=== PATIENT | male | born 1960 | race Caucasian/White ===

== ENCOUNTER → 2023-06-05 11:59 | Outpatient (REF) | payer OTHER, SELFPAY | LOC: RAD 11:59 | PROVIDERS: ATTENDING PHYSICIAN Physician Assistant Medical | DX: M25.571 Pain in right ankle and joints of right foot (principal); M25.471 Effusion, right ankle | CPT/HCPCS: 73610 ==

== ENCOUNTER → 2023-06-23 18:56 | Outpatient (REF) | payer OTHER, SELFPAY | LOC: MRI 18:56 | PROVIDERS: ATTENDING PHYSICIAN Anesthesiology; FAMILY PHYSICIAN Family Medicine; REFERRING PHYSICIAN Neurological Surgery | DX: M54.16 Radiculopathy, lumbar region (principal); M54.50 Low back pain, unspecified | CPT/HCPCS: 72148 ==

== ENCOUNTER → 2023-07-11 15:33 | Outpatient (REF) | payer OTHER, SELFPAY | LOC: RAD 15:33 | PROVIDERS: ATTENDING PHYSICIAN Neurological Surgery; FAMILY PHYSICIAN Family Medicine | DX: M51.37 Other intervertebral disc degeneration, lumbosacral region (principal) | CPT/HCPCS: 72131 ==

== ENCOUNTER 2023-09-15 21:41 | Inpatient (IN) | payer OTHER, SELFPAY ==
[2023-09-15 16:29] VITALS: BMI 41.7
[2023-09-15 16:34] VITALS: BP 184/99
[2023-09-15 17:04] LABS: % Basophils 0.3 % (0-2); % Eosinophils 2.5 % (0-6); % Immature Granulocytes 0.3 % (0-0.5); % Lymphocytes 21.5 % (20.5-51.1); % Monocytes 9.8 % (1.7-9.3); % Neutrophils 65.6 % (42.2-75.2); Absolute Eosinophils 0.3 10^3/uL (0-0.7); Absolute Lymphocytes 2.3 10^3/uL (1.2-3.4); Absolute Neutrophils 6.9 10^3/uL (1.4-6.5); Hematocrit 32.8 % (39.0-52.0); Hemoglobin 11.4 g/dL (13.0-18.0); Mean Corp Hgb Conc. 34.8 g/dL (33.0-37.0); Mean Corpuscular Hgb 34.4 pg (27.0-31.0); Mean Corpuscular Volume 99.1 fL (80.0-94.0); Mean Platelet Volume 9.9 fL (7.4-10.4); Nucleated Red Blood Cells % 0 % (-); Platelet Count 245 10^3/uL (130-400); Red Blood Cell Count 3.31 10^6/uL (4.70-6.10); Red Cell Dist. Width 13.5 % (11.5-14.5); White Blood Cell Count 10.5 10^3/uL (4.8-10.8)
[2023-09-15 17:14] LABS: ALT (SGPT) 45 U/L (0-50); AST (SGOT) 47 U/L (17-59); Albumin 4.4 g/dl (3.5-5.0); Alkaline Phosphatase 84 U/L (38-126); Blood Urea Nitrogen 28 mg/dl (9-20); Calcium 10.2 mg/dl (8.4-10.2); Carbon Dioxide 27 mmol/L (22-30); Chloride 99 mmol/L (98-107); Glucose 97 mg/dl (70-99); Potassium 3.9 mmol/L (3.5-5.1); Sodium 135 mmol/L (135-145); Total Bilirubin 0.8 mg/dl (0.2-1.3); eGFR > 60.00
--- NOTE | 2023-09-15 18:59 | ED.GENMED ---
History of Present Illness
General
Chief Complaint: Rectal Bleeding
Source: patient and family
Time Seen by Provider: 09/15/23 18:45
History of Present Illness
History of Present Illness:
63yoM with a history of HTN, HLD, COPD, diverticulosis presenting with his for evaluation of rectal bleeding. Patient had a normal BM around 3:30 that was followed by 3 large episodes of BRBPR. Patient states that the blood filled up the toilet
bowl. He also had a dark red BM on arrival to his exam room. He believes he may have an infection because he ate leftover mussels yesterday. He reports abdominal bloating and gurgling but denies any overt pain. He is otherwise asymptomatic and
denies any fevers, chest pain, shortness of breath, vomiting. He is not on any anticoagulants. He has a history of perforated diverticulitis s/p colostomy/ileostomy in 2012 with subsequent reversal. Last colonoscopy was 2 years ago which was
reportedly normal.
Past History
Past History
ED Past Medical History: GERD, HTN and Other (Diverticulosis)
ED Past Surgical History: Orthopedic (knee replacement) and Other (colonoscopy/endoscopy)
Social History
Tobacco: Non-smoker (Cigars)
Alcohol: Occasional
Drug: None
Personal:
Living: with family
Family History
Family History: Other (n/c)
Phy Exam
General Physical Exam
General Presentation: well appearing and no apparent distress
General age: appears stated age
General Skin: warm and dry
General Habitus: normal
Cardiovascular Exam
Cardiovascular Exam: regular rate/rhythm and no murmur
Pulmonary Exam
Pulmonary Exam: lungs clear, no respiratory distress, no crackles and no wheezing
Gastrointestinal Exam
Gastrointestinal Exam: non tender, soft, non distended, surgical scar and other (Maroon stool)
Skin Exam
Skin Exam: normal color and warm/dry
Course
Orders/Labs/Results
Orders:
Orders
09/15/23 Dinner
NPO
Allow oral meds: Yes
Allow clear liquids: No
NPO with Ice Chips: No
09/15/23 16:45
CMP [Comprehensive Metabolic Panel] Urgent
Complete Blood Count/With Diff Urgent
09/15/23 19:15
Stool Culture Urgent
SANTOSH Source: Feces/Stool
Specimen Description:
Date Specimen was Collected: 09/15/23
Time Specimen was Collected: 19:08
09/15/23 20:51
Admit/Transfer Patient As Directed
Co-Sign Provider:
Level of Care: Inpatient admission
Assign to:: Telemetry
Physician / Group: miguel salazar
Diagnosis: rectal bleeding, eoth abuse
Reason for Telemetry: Arrhythmia
Date to Stop Telemetry: 09/18/23
Time to Stop Telemetry: 11:00
Reason for Hospitalization: rectal bleeding, eoth abuse
Expected length of stay greater than two midnights?: Yes
ELOS- Estimated Length of Stay in days: 3
I certify the patient meets the requirements for IP care: Yes
09/15/23 20:54
Code Status As Directed
Resuscitation Status: Full Code
09/15/23 21:00
Flush (0.9% Sodium Chloride) [Flush (Nss)] See Dose Instructions IV PER PROTOCOL
09/15/23 22:55
0.9% Sodium Chloride 1000 ml [Nss] 1,000 ml IV 100 mls/hr
0.9% Sodium Chloride [Nss (Preservative Free)] See Protocol IV PRN PRN
FOLic ACID [Folvite] 1 mg 0.9% Sodium Chloride 50 ml [Nss] 50 ml IV DAILYPRN
Gabapentin [Neurontin] 300 mg PO TID
Lorazepam [Ativan] 1 mg IV Q1HPRN PRN
Lorazepam [Ativan] 1 mg PO Q2HPRN PRN
Lorazepam [Ativan] 2 mg IV Q1HPRN PRN
09/15/23 22:55
Case Management Consult Once
Case Management Consult: Other
Comment: Substance abuse counseling
DIETARY CONSULT Routine
Reason for Consult: Nutrition support, possible refeeding guidelines
Activity As Directed
Activity Level: As Tolerated
MSAS SCORE As Directed
MSAS Score 0-4: Repeat MSAS every 2 hours until 0-4 for three consecutive assessments, then every 4 hours x 48
hours.
MSAS Score 5-7: For MILD withdrawl symptoms. Repeat MSAS and RASS every 2 hours
MSAS Score 8-11: For MODERATE withdrawal symptoms. Repeat MSAS and RASS every 1 hour. Consider ICU or IMU
level of care.
MSAS Score > 11: For SEVERE withdrawal symptoms. Repeat MSAS and RASS every 1 hour. Notify provider, consider
ICU level of care.
MSAS Additional Instructions: If no improvement or no decrease in score from severe to moderate within 12
hours, consult psychiatry
MSAS Notify Provider: Notify provider if patient requires more than 10 mg of Lorazepam in eight hour period.
Pneumatic Compression Sleeves As Directed
Type: Knee high
Vital Signs As Directed
Frequency: Per unit guidelines
Ot Eval And Treat Routine
Pt Eval And Treat Routine
Activity Level: As Tolerated
DX Deep Vein Thrombosis Video Routine
09/15/23 23:22
Alcohol Urgent
B-Hydroxybutyrate Urgent
GGTP Urgent
Magnesium Urgent
PTT Urgent
Phosphorus Urgent
Prothrombin Time Urgent
09/15/23 23:24
Urinalysis Routine
Date Specimen was Collected: 09/15/23
Time Specimen was Collected: 23:12
Urine Drug Abuse Screen Routine
Date Specimen was Collected: 09/15/23
Time Specimen was Collected: 23:12
09/16/23 00:00
Thiamine Injection 200 mg IV Q8
09/16/23 06:00
Complete Blood Count/With Diff IN AM
Comprehensive Metabolic Panel IN AM
09/16/23 08:00
Ezetimibe [Zetia] 10 mg PO DAILY
FOLic ACID [Folvite] 1 mg PO DAILY
Hydrocodone 7.5/APAP 325 [[place] 7.5/325] 2 tablet PO DAILY
Metoprolol Xl [Toprol Xl] 25 mg PO DAILY
Pantoprazole [Protonix IV] 40 mg IV DAILY
Valsartan [Diovan] 160 mg PO DAILY
09/16/23 13:00
Hydrocodone 7.5/APAP 325 [[place] 7.5/325] 1 tablet PO BID@1300,1800
09/17/23 06:00
Complete Blood Count/With Diff IN AM
Comprehensive Metabolic Panel IN AM
09/17/23 18:00
Atorvastatin [Lipitor] 80 mg PO Q48H
09/18/23 06:00
Complete Blood Count/With Diff IN AM
Comprehensive Metabolic Panel IN AM
09/18/23 11:00
DC Protocol for Telemetry ONCE
09/19/23 08:00
Thiamine HCl [Vitamin B1] 100 mg PO BID
Abnormal Lab Results
09/15/23
16:45
RBC 3.31 L 10^6/uL
(4.70-6.10)
Hgb 11.4 L g/dL
(13.0-18.0)
Hct 32.8 L %
(39.0-52.0)
MCV 99.1 H fL
(80.0-94.0)
MCH 34.4 H pg
(27.0-31.0)
Absolute Neuts (auto) 6.9 H 10^3/uL
(1.4-6.5)
Absolute Monos (auto) 1.0 H 10^3/uL
(0.1-0.6)
Monocytes % 9.8 H %
(1.7-9.3)
BUN 28 H mg/dl
(9-20)
09/15/23 16:45
09/15/23 16:45
Vital Signs
Initial and Last Documented VS:
Initial Vital Signs
Temp Pulse Resp BP Pulse Ox
98.8 F 100 20 184/99 95
09/15/23 16:34 09/15/23 16:34 09/15/23 16:34 09/15/23 16:34 09/15/23 16:34
Last Documented Vital Signs
Temp Pulse Resp BP Pulse Ox
98.6 F 83 20 155/95 95
09/15/23 23:05 09/15/23 23:05 09/15/23 23:05 09/15/23 23:05 09/15/23 23:05
MDM/Problems Addressed
Differential Diagnosis Includes:
63yoM presenting for rectal bleeding that began this morning. Multiple episodes of BRBPR prior to arrival and he had a dark red BM on arrival to the exam room. Patient is hypertensive with otherwise normal vital signs. He is fortunately
nontoxic-appearing. Differential diagnosis includes but is not limited to: Diverticular bleed, hemorrhoidal bleed, AVM, infectious gastroenteritis, anemia
Labs obtained in triage. Hemoglobin is 11.4 which is down from 12.9 in 2020. BUN is 28. Will send stool studies.
*Critical Care Note
Total Time (30-74mins, 75-104mins- exclusive of procedures): Not Applicable
Update Note
Update Note:
On reassessment, patient had a another large dark red BM. Given that he is actively bleeding, will admit for further management. Patient in agreement.
ED Attending Note
-
Portions of this chart may have been created with voice recognition software.� Occasional wrong word or��sound alike� substitutions may have occurred due to the inherent limitations of voice recognition software.
Discharge Plan
Departure
Patient Disposition: Admit
Date of Disposition: 09/15/23
Time of Disposition: 20:02
Presentation/result/management discussed w/ accepting MD/DO: Hospitalist
Discharge Problem:
GI bleed
Interventions
Interventions:
*Risk Screen - Suicide Last Done: 09/15/23 16:43
*General Assessment Last Done: 09/15/23 23:08
*Neglect/Abuse Screening Last Done: 09/15/23 16:43
ED- Fall Risk Assessment Last Done: 09/15/23 19:57
*ED COVID-19 Vaccine History Last Done: 09/15/23 16:34
*Nursing Disposition Last Done: 09/15/23 23:08
SX-Ngyusw-Bzxdsvkppu Assessment Last Done: 09/15/23 19:57
ED- Cardiac Assessment Last Done: 09/15/23 19:57
ED- Pulmonary Assessment Last Done: 09/15/23 19:57
Discharge Date and Time
Discharge Date/Time: 09/15/23 23:09
[2023-09-15 19:18] VITALS: BP 125/91
--- NOTE | 2023-09-15 20:17 | HPS.HSE ---
Family Physician
-
Family Physician: Gato Haynes
Chief Complaint
-
Formed stool with bright red blood
History of Present Illness
63-year-old male complaining of 2 episodes of formed stool with red around it. He also reports 1 episode of light diarrhea soup like with dark red in color followed by lots of gas with some bloody maroon stool. He reports eating muscles on
Friday only a few then repeated in yesterday and had 10 of them. He then became sick today with diarrhea although denies abdominal pain, cramping, fever, chills, no antibiotics or recent travel no sick contacts nausea, vomiting, chest pain,
palpitations, shortness breath, cough, urinary symptoms.. He does have history of perforated diverticulitis status post colostomy/ileostomy in 2013 with subsequent reversal. Other past medical history includes alcohol abuse, hypertension, HLD,
COPD, diverticulosis, Chronic back pain on chronic oral opiates
Medical History
Past Medical History
Past Medical History: Reports Other
Additional Past Medical History:
perforated diverticulitis status post colostomy/ileostomy in 2013 with subsequent reversal
Diverticulosis
alcohol abuse
hypertension
HLD
COPD
Morbid obesity
Past Surgical History: Reports Other
Additional Past Surgical History:
perforated diverticulitis status post colostomy/ileostomy in 2013 with subsequent reversal
Tonsillectomy
Bilateral knee replacement
Social History
Tobacco: Non-smoker
Alcohol: Daily (4 to 8 ounces of vodka daily +36 ounces of IPA beer)
Personal:
Living: With Family
Employment: Employed
Family History
Family History: Other (Father from COVID history of DM2/cardiac disease mother living but does not go to doctors)
Allergies / Home Medications
Allergies reflects when Allergies were last updated in [facility].
Home Medications with original date entered in [facility]
Allergy/Medication List:
Allergies
Allergy/AdvReac Type Severity Reaction Status Date / Time
ciprofloxacin [From Cipro] Allergy JOINT PAIN Verified 09/15/23 16:40
ciprofloxacin HCl Allergy JOINT PAIN Verified 09/15/23 16:40
[From Cipro]
oxycodone Allergy ORAL Verified 09/15/23 16:40
Swelling
Home Medications
lansoprazole 30 mg capsule,delayed release (Prevacid) 30 mg PO DAILY Gastrointestinal issue 06/20/20
albuterol sulfate 90 mcg/actuation aerosol inhaler 2 puff inhalation R Q4HPRN PRN SOB ##1 06/23/20
metoprolol succinate 25 mg tablet,extended release 24 hr 25 mg PO DAILY Blood pressure #60 tabs 06/23/20
atorvastatin 80 mg tablet 80 mg PO Q48H 09/15/23
ezetimibe 10 mg tablet 10 mg PO DAILY 09/15/23
gabapentin 300 mg capsule 300 mg PO TID 09/15/23
hydrochlorothiazide 50 mg tablet 50 mg PO DAILY 09/15/23
hydrocodone 10 mg-acetaminophen 325 mg tablet 1 tab PO BID@1300,1800 09/15/23
hydrocodone 10 mg-acetaminophen 325 mg tablet 2 tab PO DAILY 09/15/23
valsartan 160 mg tablet 160 mg PO DAILY 09/15/23
Review of Systems
-
History Source: Patient and Family ( at bedside)
A 12 point ROS was completed and negative except as noted: Yes
Constitutional: Denies Fever or Fatigue
EENT: Denies Tearing or Runny Nose
Respiratory: Denies Cough or Trouble Breathing
Cardiac: Denies Chest Pain or Syncope
Abdomen/GI: Reports Diarrhea (Watery x 1) and Bloody Stools (Formed brown stool with red around stool and bowel); Denies Abdominal Pain, Nausea, Vomiting or Constipated
: Denies Dysuria, Frequency, Flank Pain, Incontinence or Difficulty Voiding
Musculoskeletal: Denies Joint Pain or Edema
Skin: Denies Itching or Rash
Neurological: Denies Dizzy, Headache or Weakness
Endocrine: Reports No Symptoms
Hematologic/Lymphatic: Reports No Symptoms
Psych: Reports Calm
Physical Exam
Vital Signs
Vital Signs
Temp Pulse Resp BP Pulse Ox
98.8 F 81 23 125/91 95
09/15/23 16:34 09/15/23 20:15 09/15/23 20:15 09/15/23 19:18 09/15/23 16:34
Physical Exam
General: Conversant; No Pain, Fever or Chills
HEENT: NormoCephalic, Anicteric, Moist mucous membranes, PERRLA, Hydro Conjunctivae and No Ptosis
Respiratory: Clear; No Wheezes or Rales
Cardiac: Regular Rhythm; No Murmur, Rub or Gallop
Breast: Deferred by me
GI: Non Tender, Non Distended, Normal Bowel Sounds and Other (Protuberant abdomen)
Rectal: Deferred by Provider
Genito-urinary: Deferred by me
Musculoskeletal: No Clubbing, No Cyanosis, Edema, Left Lower Extremity (Trace edema lower ankles) and Edema, Right Lower Extremity (Trace edema lower ankles); No Edema, Left Upper Extremity or Edema, Right Upper Extremity
Skin: Warm and Dry; No Rash or Jaundice
Neuro: AO x 3, No Motor Deficits, Nonfocal/grossly intact, Cranial Nerves Intact and No Sensory Deficits; No DTR's Intact & Symmetrical, Slurred Speech, Facial Droop or Tremors
Psych: Calm
Laboratory Results
-
09/15/23 16:45
09/15/23 16:45
Laboratory Results
Total Bilirubin 0.8 mg/dl (0.2-1.3) 09/15/23 16:45
AST 47 U/L (17-59) 09/15/23 16:45
ALT 45 U/L (0-50) 09/15/23 16:45
Alkaline Phosphatase 84 U/L (38-126) 07/08/24 16:45
Impression/Plan
-
Impression/plan:
Admit to telemetry
#Acute rectal bleeding bright red blood concern for possible foodborne illness
Developed 1 day after eating reheated mussels and marinara sauce
no recent abx
Hgb 11.4
Consult GI
-IV NSS 100 cc/h
-Stool cultures
-Monitor H&H every 8 hours
#Hx perforated diverticulitis with prior colostomy/ileostomy status post reversal 2012
#Alcohol abuse
Patient drinks 4 to 8 ounces of vodka daily +36 ounces of IPA beer daily
-MSAs screen with protocol
-IV thiamine, IV folate
#HTN�benign
BP 125/91
-Hold HCTZ 50 mg daily
-Continue metoprolol succinate 25 mg daily with hold parameters
-Continue valsartan 160 mg p.o. daily
#HLD
Atorvastatin 80 mg every 48 H, ezetimibe 10 mg daily
#GERD
Patient on 30 mg of Prevacid daily will give Iv PPI
#COPD�no acute exacerbation
-Continue albuterol
#Morbid obesity due to excess calorie consumption�BMI 41.6 kg
-Weight loss recommended, alcohol cessation
#Chronic back pain on chronic oral opiates
May continue gabapentin 300 mg 3 times daily, hydrocodone 1 tab p.o. twice daily 1300 1800, 2 tablets p.o. daily
DVT prophylaxis
SCDs
Full code
--- NOTE | 2023-09-15 20:40 | W.PN.UPDATE ---
Update Note
Progress Note Update
This note serves as an addendum to the H&P by [employer] WILFRIDO Asha LOZANO
HPI
63M HX rectal bleeding (2015) had C Scope(03/07/16) POS for single (solitary) ulcer at the ileocecal valve, diverticulosis, EGD(03/05/2016) POs for gastritis, ETOH use disorder, HTN seen at ER for evaluation of rectal Bleed
Report 3 episodes of BRBPR with 1 dark red bowel movement then mixed with loose BM
He had reheated mussels prior to acute rectal bleed
Other HX include perforated diverticulitis status post colostomy/ileostomy in 2012 with subsequent reversal.
PMHX
HX rectal bleeding (2015) had C Scope(03/07/16) POS for single (solitary) ulcer at the ileocecal valve, diverticulosis, EGD(03/05/2016) POs for gastritis,
ETOH use disorder,
Hypertension,
HLD
COPD
Hemodynamically stable
Data
Hgb 11.4 - was 12.9 on 06/22/23
MCV 99
BUN 28
Unremarkable LFTs
Stool Cx sent
ASSESSMENT & PLAN
Acute 3 episodes of painless BRBPR followed by hematochezia suspect LGIB : DDX : diverticular bleeding, AVM
Hgb 11.4: borderline ACBL anemia on HX chronic macrocytic anemia
Hemodynamically stable
Exposure reheated shell fish prior to rectal painless bleeding
HX rectal bleeding (2015) had C Scope(03/07/16) POS for single (solitary) ulcer at the ileocecal valve, diverticulosis, EGD(03/05/2016) POs for gastritis,
- stool Cx , hold ABx for now
- NPO and IVF
- IV PPI daily
- T & S Blood consent
- Trend Hgb
- GI consult
HX perforated diverticulitis with prior colostomy/ileostomy status post reversal 2012
HX ETOH use disorder: 2- 3 beer, Vodka sots and drink more over the week end
HX chronic macrocytosis with mild anemia
- MSAS protocol for hi risk
Essential HTN
-Hold HCTZ 50 mg daily
- cont. Continue metoprolol succinate 25 mg daily with hold parameters
- cont valsartan 160 mg p.o. daily
DVT Px: SCD
Code: Full
IP TLM
[2023-09-15 22:20] VITALS: BP 159/92
[2023-09-15 23:05] VITALS: BP 155/95; BMI 41.4
[2023-09-15 23:36] LABS: Urine Albumin Negative (Neg - Trace); Urine Bilirubin Negative (Negative); Urine Character Clear (Clear); Urine Color Yellow; Urine Glucose Negative (Negative); Urine Ketone Negative (Negative); Urine Leukocyte Negative (Negative); Urine Nitrite Negative (Negative); Urine Occult Blood Negative (Negative); Urine Specific Gravity 1.005 (<1.030); Urine Urobilinogen Negative (Neg - 1+)
[2023-09-15] MEDS: NEURONTIN PO (23:44)
--- NOTE | 2023-09-15 23:45 | PTCARENOTE ---
Pt received from ED via stretcher. Ambulated to bed w/assist x2, without incident. Pt reported dizziness upon standing. Instructed not to get OOB w/out staff, verbalizes understanding. Telemetry = SR. Ordered labs drawn, urine specimen
collected and sent. Admission and assessment completed, oriented to surroundings and plan of care discussed. Pt assisted to BSC x1, passed large amount of burgundy liquid w/clots, discussed using bedpan, pt agreeable. Pt refused HS dose of
gabapentin. NSS infusing via RAC INT at 100 mL/hr without complication. Call rachel w/in reach. Plan of care ongoing.
[2023-09-15 23:46] LABS: INR 1.06; PT 13.6 Sec (11.4-14.6)
[2023-09-15 23:48] LABS: GGTP 274 U/L (15-73); Magnesium 1.3 mg/dl (1.6-2.3); Phosphorus 4.2 mg/dl (2.5-4.5)
[2023-09-15 23:50] LABS: Alcohol None Detected
[2023-09-15 23:52] LABS: Amphetamines Negative (Negative); Barbiturates Negative (Negative); Benzodiazepines Negative (Negative); Buprenorphine Negative (Negative); Cocaine Negative (Negative); Marijuana Negative (Negative); Methadone Negative (Negative); Methamphetamines Negative (Negative); Opiates Positive (Negative); Phencyclidine Negative (Negative); Tricyclic Antidepressants Negative (Negative)
[2023-09-15 23:54] LABS: B-Hydroxybutyrate 0.23 mmol/L (0.02-0.27)
[2023-09-15] MEDS: NSS 1000 IV (23:54)
[2023-09-15] MEDS: THIAMINE INJECTION 200 MG IV (23:59)
[2023-09-16] VITALS (8 sets, daily range): BP systolic 106–152; BP diastolic 41–97; PULSE 90–93; O2SAT 94
[2023-09-16 00:46] LABS: Fentanyl, Urine Negative (Negative)
[2023-09-16] MEDS: MAGNESIUM SULFATE 100 IV (03:14)
[2023-09-16 06:29] LABS: % Basophils 0.5 % (0-2); % Eosinophils 3.4 % (0-6); % Immature Granulocytes 0.4 % (0-0.5); % Lymphocytes 24.7 % (20.5-51.1); % Monocytes 9.7 % (1.7-9.3); % Neutrophils 61.3 % (42.2-75.2); Absolute Eosinophils 0.3 10^3/uL (0-0.7); Absolute Lymphocytes 1.9 10^3/uL (1.2-3.4); Absolute Monocytes 0.7 10^3/uL (0.1-0.6); Absolute Neutrophils 4.7 10^3/uL (1.4-6.5); Hematocrit 28.5 % (39.0-52.0); Hemoglobin 9.9 g/dL (13.0-18.0); Mean Corp Hgb Conc. 34.7 g/dL (33.0-37.0); Mean Corpuscular Hgb 34.5 pg (27.0-31.0); Mean Corpuscular Volume 99.3 fL (80.0-94.0); Mean Platelet Volume 9.8 fL (7.4-10.4); Nucleated Red Blood Cells % 0 % (-); Platelet Count 210 10^3/uL (130-400); Red Blood Cell Count 2.87 10^6/uL (4.70-6.10); Red Cell Dist. Width 13.4 % (11.5-14.5); White Blood Cell Count 7.6 10^3/uL (4.8-10.8)
[2023-09-16 06:54] LABS: ALT (SGPT) 39 U/L (0-50); AST (SGOT) 37 U/L (17-59); Albumin 3.8 g/dl (3.5-5.0); Alkaline Phosphatase 78 U/L (38-126); Blood Urea Nitrogen 22 mg/dl (9-20); Calcium 9.2 mg/dl (8.4-10.2); Carbon Dioxide 27 mmol/L (22-30); Chloride 101 mmol/L (98-107); Estimated Creatinine Clearance > 125 ml/min; Glucose 105 mg/dl (70-99); Magnesium 2.4 mg/dl (1.6-2.3); Potassium 3.6 mmol/L (3.5-5.1); Sodium 136 mmol/L (135-145); Total Bilirubin 1.2 mg/dl (0.2-1.3); Total Protein 6.3 g/dl (6.3-8.2); eGFR > 60.00
[2023-09-16 07:40] LABS: Hepatitis C Antibody Negative (Negative)
[2023-09-16] MEDS: ZETIA 10 MG PO (08:18)
[2023-09-16] MEDS: NEURONTIN 300 MG PO ×3 (08:18→23:53)
[2023-09-16] MEDS: FOLVITE 1 MG PO (08:18)
[2023-09-16] MEDS: DIOVAN 160 MG PO (08:18)
[2023-09-16] MEDS: NORCO 7.5/325 2 TABLET PO (08:19)
[2023-09-16] MEDS: NSS (PRESERVATIVE FREE) 10 ML IV ×2 (08:19→19:41)
[2023-09-16] MEDS: PROTONIX IV 40 MG IV ×2 (08:19→19:40)
[2023-09-16] MEDS: THIAMINE INJECTION 200 MG IV ×3 (08:19→23:53)
[2023-09-16] MEDS: TOPROL XL 25 MG PO (08:20)
[2023-09-16] MEDS: NSS 1000 IV ×2 (08:30→23:53)
--- NOTE | 2023-09-16 09:47 | CON.GI ---
Addendum entered and electronically signed by Maren Hernández DO 09/16/23 14:00:
Patient seen and examined independently of KALYAN. I agree with her note with my additions below
Arturo is a 63-year-old obese male with history of complicated diverticular disease and prolonged hospitalization for perforated diverticulitis status post colostomy in 2012 with eventual reversal and multiple abdominal surgeries and washouts,
COPD, FUENTES on BiPAP, significant nightly alcohol who comes in with acute onsets painless bloody stool and urgency without fever, chills or leukocytosis after eating reheated mussels.
Patient states he was in normal state of health. On Friday he had mussels then reheated them in the microwave on Friday. About 12 hours later he had the urge to move his bowels and had mainly stool with bright red blood. Since then has had an
episode of loose stools which have become more and more dark with each episode and less frequent. Still no significant abdominal pain. No fever no chills. Stool studies have been negative for Giardia cryptosporidium, C. difficile. stool culture
still pending. His last colonoscopy was in [address] Meraz when he was here for rectal bleeding and at that time an endoscopy and a colonoscopy and Was found to have an ileocecal valve ulcer. Patient has diverticulosis throughout the entire
colon.
No imaging to view.
# Bloody stool --patient is hemodynamically stable with roughly 3 g drop in hemoglobin since admission
-- Stools are slowing down
-- Stool is now darker and less red
-- More likely infectious in nature especially with repeating mussels which can release the toxin, stool culture pending - need to rule out e.coli before antibiotics
-- IVF
-- check fecal leukocytes
-- If patient develops any abdominal pain would proceed with imaging
--If bleeding/stools do not slow down we will proceed to flexible sigmoidoscopy/colonoscopy
--Once daily PPI
-- monitor hgb
Addendum entered and electronically signed by Marianne King NP 09/16/23 12:46:
Also possibly infectious given his intake of left over mussels. Await stool studies. Hgb is stable.
Original Note:
Consultation
-
Date/Time Consultation Requested: 09/16/23 @ 02:40
Date/Time Consultation Performed: 09/16/23 @ 10:00
Requesting Provider: KALYAN Dowling
Performing Provider: KALYAN Bryan; Dr. Maren Hernández
Reason for Consultation: rectal bleed after eating mussels
Medical History
Chief Complaint / HPI
Chief Complaint: Diarrhea, rectal bleeding
History of Present Illness:
The pt is a 63 yo male with a PMH significant for diverticular disease with complicated and prolonged hospitalized for perforated diverticulitis status post colostomy/ileostomy in 2012 with reversal, chronic back pain on opiates, alcohol abuse,
hypertension, hyperlipidemia, COPD, obesity, FUENTES with CPAP use, prior GI bleeding suspected to be diverticular, who presented to the emergency room with complaints of diarrhea and rectal bleeding which we are being asked to evaluate for. Upon
review of prior records, the patient was seen here in 2015 with complaints of rectal bleeding at that time after having knee surgery and being on high-dose aspirin post surgery. He underwent EGD and colonoscopy at that time in which his colonoscopy
revealed a ileocecal ulcer. EGD showed gastritis and random biopsies were unrevealing. The patient notes that he had a prolonged and complicated hospitalization in 2012 where he had a bowel resection for diverticulitis with perforation. He
underwent initial surgery and then had recurrent complications including sepsis requiring ileostomy and colostomy placement, with subsequent surgeries for washout, requiring a wound VAC for healing. He notes he was in the hospital for about 20 to
30 days at that time, but since then has not had any major complications. He reports yesterday evening around 3:20 PM he developed the urgency to move his bowels, and upon going he noticed bright red blood in the toilet bowl. He had 3 subsequent
episodes within 15 minutes of each other again with bright red blood per rectum. He notes that he ate leftover muscles yesterday afternoon with symptoms subsequently after that. He denies any abdominal pain, nausea, vomiting, fevers, or chills.
He notes he has had several episodes of rectal bleeding in the past, but without the significant mount of bleeding as this admission. He notes that he had a very busy day and was doing lots of lifting yesterday prior to this onset as well. He
denies any constipation or significant diarrhea prior to this onset He otherwise denies any chest pain, shortness of breath, dizziness, lightheadedness, or syncope. Does have occasional reflux and does take Prevacid regularly for this. He denies
any unintentional weight loss or loss of appetite. He continues with the urgency to move his bowels and is passing blood although he notes it is much darker in appearance and happening less frequently. He denies any use of blood thinners, aspirin,
or NSAIDs. He will take Tylenol on occasion for his chronic pain. Also takes hydrocodone as well up to 3-4 times a day for his chronic pain. He denies any family history of colon cancer or other GI cancers or disorders. His last EGD and
colonoscopy as mentioned above. This with your eyes status negative Routine labs admission showed a WBC 10.5, hemoglobin 11.4, MCV 99.1, platelets 245,000, INR 1.06, sodium 135, potassium 3.9, BUN 28, creatinine 0.7, bilirubin 0.8, AST 47, ALT 45,
alk phos 84, albumin 4.4, total protein 7.0. Stool studies were sent and are negative for C. difficile, Cryptosporidium, or Giardia. Stool culture is pending. He was placed on once daily IV PPI, IV fluids, made n.p.o., and admitted for further
evaluation by GI. Antibiotics were held on admission.
Past Medical History
Past Medical History: CHF (Right-sided heart failure), COPD, GERD, HTN, Hypercholesterolemia, NIDDM (Prediabetes) and Other (Chronic back pain on opiates, obesity, history of diverticulosis with perforated diverticulitis status post bowel resection
with colostomy and reversal, obstructive sleep apnea with CPAP use)
Past Surgical History: Bowel Resection (Bowel resection secondary to diverticular disease with ileostomy and colostomy with reversal, lysis of adhesions), Orthopedic (Bilateral knee replacement) and Tonsilectomy
Social History
Tobacco: Non-Smoker
Alcohol: Daily (Up to 3 beers and 48 ounces of bourbon daily)
Drug: None
Employment: Employed
Family History
Family History: Reviewed & Not Pertinent
Allergies / Home Medications
Allergy/AdvReac Type Severity Reaction Status Date / Time
ciprofloxacin [From Cipro] Allergy JOINT PAIN Verified 09/15/23 16:40
ciprofloxacin HCl Allergy JOINT PAIN Verified 09/15/23 16:40
[From Cipro]
oxycodone Allergy ORAL Verified 09/15/23 16:40
Swelling
�Medication �Instructions �Recorded
lansoprazole 30 mg capsule,delayed 30 mg PO DAILY Gastrointestinal 06/20/20
release (Prevacid) issue
albuterol sulfate 90 mcg/actuation 2 puff inhalation R Q4HPRN PRN SOB 06/23/20
aerosol inhaler ##1
metoprolol succinate 25 mg 25 mg PO DAILY Blood pressure #60 06/23/20
tablet,extended release 24 hr tabs
atorvastatin 80 mg tablet 80 mg PO Q48H 09/15/23
ezetimibe 10 mg tablet 10 mg PO DAILY 09/15/23
gabapentin 300 mg capsule 300 mg PO TID 09/15/23
hydrochlorothiazide 50 mg tablet 50 mg PO DAILY 09/15/23
hydrocodone 10 mg-acetaminophen 1 tab PO BID@1300,1800 09/15/23
325 mg tablet
hydrocodone 10 mg-acetaminophen 2 tab PO DAILY 09/15/23
325 mg tablet
valsartan 160 mg tablet 160 mg PO DAILY 09/15/23
Review of Systems
-
History Source: Patient
Constitutional: Reports Weight Loss (Intentional)
EENT: Reports No Symptoms
Respiratory: Reports No Symptoms
Cardiac: Reports No Symptoms
Abdomen/GI: Reports Bloody Stools
: Reports No Symptoms
Musculoskeletal: Reports Other (Chronic back pain)
Skin: Reports No Symptoms
Neurological: Reports No Symptoms
Vital Signs
Temp Pulse Resp BP Pulse Ox
97.7 F 83 20 152/84 94
09/16/23 07:32 09/16/23 07:32 09/16/23 07:32 09/16/23 07:32 09/16/23 07:32
Physical Exam
Exam
General: Well Developed, Well Nourished, No Apparent Distress, Comfortable and Other (Obese male appears stated age, )
HEENT: Normocephalic, Anicteric and Atraumatic
Respiratory: Clear
Cardiac: S1/S2 and Regular Rhythm
Breast: N/A
GI: Soft, Non Tender, Non Distended, Normal Bowel Sounds and Other (Obese abdomen, numerous prior abdominal surgical scars)
Musculoskeletal: Edema (Trace lower extremity edema)
Skin: Warm and Dry
Neuro: Awake, Alert and Oriented
Psych: Calm
Results
WBC 7.6 10^3/uL (4.8-10.8) 09/16/23 06:06
Hgb 9.9 g/dL (13.0-18.0) L 09/16/23 06:06
Hct 28.5 % (39.0-52.0) L 09/16/23 06:06
MCV 99.3 fL (80.0-94.0) H 09/16/23 06:06
Plt Count 210 10^3/uL (130-400) 09/16/23 06:06
Absolute Neuts (auto) 4.7 10^3/uL (1.4-6.5) 09/16/23 06:06
PT 13.6 Sec (11.4-14.6) 09/15/23 23:22
INR 1.06 09/15/23 23:22
APTT 26.0 Sec (23.4-35.0) 09/15/23 23:22
Sodium 136 mmol/L (135-145) 09/16/23 06:06
Potassium 3.6 mmol/L (3.5-5.1) 09/16/23 06:06
Chloride 101 mmol/L (98-107) 09/16/23 06:06
Carbon Dioxide 27 mmol/L (22-30) 09/16/23 06:06
BUN 22 mg/dl (9-20) H 09/16/23 06:06
Creatinine 0.6 mg/dL (0.7-1.3) L 09/16/23 06:06
Calcium 9.2 mg/dl (8.4-10.2) 09/16/23 06:06
Total Bilirubin 1.2 mg/dl (0.2-1.3) 09/16/23 06:06
AST 37 U/L (17-59) 09/16/23 06:06
ALT 39 U/L (0-50) 09/16/23 06:06
Alkaline Phosphatase 78 U/L (38-126) 09/16/23 06:06
Hepatitis C Antibody Negative (Negative) 09/16/23 06:06
Diagnostic Image Results: None
Prior GI Procedures:
EGD: 03/05/2016 Dr. Alcala: Z-line irregular, 36 cm from the incisors. Biopsied. Acute gastritis. Biopsied. Normal 3rd part of the duodenum. Path negative for H pylori.
Colonoscopy: 03/07/16, Dr. Meraz: The examined portion of the ileum was normal. A single (solitary) ulcer at the ileocecal valve. Biopsied. Diverticulosis in the entire examined colon. Patent end-to-end colo-colonic anastomosis, characterized
by healthy appearing mucosa. Path negative for dysplasia, showing mixed acute/chronic inflammation.
Assessment / Plan
-
The pt is a 63 yo male with a PMH significant for diverticular disease with complicated and prolonged hospitalized for perforated diverticulitis status post colostomy/ileostomy in 2012 with reversal, chronic back pain on opiates, alcohol abuse,
hypertension, hyperlipidemia, COPD, obesity, FUENTES with CPAP use, prior GI bleeding suspected to be diverticular, who presented to the emergency room with complaints of diarrhea and rectal bleeding which we are being asked to evaluate for. He has an
outlined history for complicated diverticular disease status post bowel resection for perforated diverticulitis in 2012. He was seen in 2016 as above for GI bleeding found to have an ileocecal ulcer on colonoscopy with unrevealing pathology. He
also had an upper endoscopy which showed gastritis otherwise was normal. He notes eating left over muscles over the weekend and developed subsequent bright red blood per rectum. He denies any abdominal pain associated with the bleeding, but has
been having ongoing episodes with urgency. He denies any prior issues with his bowel such as constipation or diarrhea. He does not use any blood thinners or NSAIDs. He had prior GI bleeding in between his admission here in 2016 and now but the
bleeding essentially has self resolved. He does not follow with a GI doctor regularly. He does also drink alcohol in excess with beer and liquor. He has no history of liver disease. His platelets, albumin, and LFTs are all normal, suggesting
less likely advanced liver disease. He does have a history of intermittent anemia in the past. His hemoglobin was 11.4 on admission which dropped to 9.9 this morning with repeat hemoglobin pending. He continues with some intermittent bleeding
although this is darker now on color and occurring less frequently.
Problem list:
-Painless rectal bleeding
-History of complicated diverticular disease with perforation status post resection with colostomy/ileostomy in 2012 with reversal and prolonged hospitalization for sepsis
-Macrocytic anemia
-Elevated BUN
-Hypomagnesemia, resolved
-Elevated GGT
-Chronic opiate use for chronic pain syndrome
-chronic excessive alcohol use
Other pertinent medical history:
-Chronic right-sided heart failure
-COPD
-FUENTES with CPAP use
-Hypertension
-Hyperlipidemia
Recommendations:
-Etiology of rectal bleeding possibly secondary to diverticular disease given painless rectal bleeding versus AVMs versus less likely brisk upper GI bleed versus other.
---He has had a mild drift down of his hemoglobin, with ongoing intermittent episodes of bleeding although less frequent and darker in color. He has no abdominal pain on exam and is hemodynamically stable.
-Will increase his PPI to twice daily given the darkening of his stool and an elevated BUN, although upper GI source of bleeding is less likely given his hemodynamic stability.
-If he has any recurrent significant bleeding would obtain CTA for further evaluation
-He will possibly need an EGD and colonoscopy, consider inpatient given his drop of hemoglobin. Will review with Dr. Hernández.
-Continue NPO for now
-Continue to trend H/H
-Transfuse to keep hgb >7
-Avoid blood thinner agents
-Avoid NSAID's
-Large bore IV's
-I did advise reduction of alcohol intake and the risk of progression into liver disease
-Add iron studies, ferritin, B12, and folate
-Further plan pending above
Data Reviewed
-
Old Records: Reviewed
-
-
Thank you for consultation and allowing me to participate in the patient's care. Please call the certified medical transcriptionist GI physician during the after hours with any questions or concerns.
--- NOTE | 2023-09-16 10:02 | W.PN.HOSP.TC ---
Today's Communication/Plan
-
see A/P
Assessment / Plan
Assessment / Plan
HPI: 63-year-old male PMH alcohol abuse, hypertension, HLD, COPD, diverticulosis, perforated diverticulitis status post colostomy/ileostomy in 2012 with subsequent reversal, Chronic back pain on chronic oral opiates; p/w BRBPR.
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
He denies to abdominal pain, cramping, fever, chills, no antibiotics or recent travel, no sick contacts.
A/P:
# BRBPR , possibly infectious
# Acute blood loss anemia due to above
C diff negative, stool parasite negative
Follow stool culture
Cont PPI BID
Consult GI
Hgb today at 9.9 from 11.4 on admission, cont to trend Hgb
transfuse for Hgb < 7
# h/o perforated diverticulitis with prior colostomy/ileostomy status post reversal 2012
# Alcohol abuse
Patient drinks 4 to 8 ounces of vodka daily +36 ounces of IPA beer daily
MSAS protocol
IV thiamine, IV folate
# HTN�benign
BP 125/91
Hold HCTZ 50 mg daily
Continue metoprolol succinate 25 mg daily with hold parameters
Continue valsartan 160 mg p.o. daily
# HLD
Atorvastatin, ezetimibe
# GERD
PPI
# COPD�no acute exacerbation
Continue albuterol
# Morbid obesity due to excess calorie consumption
BMI 41
Weight loss recommended
# Chronic back pain on chronic oral opiates
May continue gabapentin 300 mg 3 times daily, hydrocodone 1 tab p.o. twice daily 1300 1800, 2 tablets p.o. daily
DVT prophylaxis SCDs
Full code
[facility] GI team
[facility] RN
Anticipated Discharge: 24 - 48 hours
Subjective/Interval History
-
Date of Service: September 16, 2023
Objective Data
-
Labs:
Laboratory Results
09/15/23 09/16/23 09/16/23
23:22 06:06 12:00
WBC 7.6
Hgb 9.9 L Pending
Hct 28.5 L Pending
Plt Count 210
PT 13.6
INR 1.06
APTT 26.0
Sodium 136
Potassium 3.6
Chloride 101
Carbon Dioxide 27
BUN 22 H
Creatinine 0.6 L
Glucose 105 H
Calcium 9.2
Total Bilirubin 1.2
AST 37
ALT 39
Alkaline Phosphatase 78
09/16/23
18:00
WBC
Hgb Pending
Hct Pending
Plt Count
PT
INR
APTT
Sodium
Potassium
Chloride
Carbon Dioxide
BUN
Creatinine
Glucose
Calcium
Total Bilirubin
AST
ALT
Alkaline Phosphatase
Vital Signs:
Vital Signs
Temp Pulse Resp BP Pulse Ox
36.5 C 83 20 152/84 94
09/16/23 07:32 09/16/23 07:32 09/16/23 07:32 09/16/23 07:32 09/16/23 07:32
I&O
09/15/23 09/16/23 09/17/23
06:59 06:59 06:59
Intake Total 750 / 750
Output Total 800 / 800
Balance -50 / -50
Review of Systems
-
All other systems: Reviewed and negative
Physical Exam
-
General: Well Developed, Well Nourished, No Apparent Distress, Comfortable, Conversant and Morbidly Obese; Negative Respiratory Distress
HEENT: Normocephalic, Atraumatic, Nose Appears Normal and Ears Appear Normal; Negative Oxygen
Respiratory: Clear to Auscultation and Non Labored Respirations; Negative Accessory Resp Muscle Use
Cardiac: Regular Rhythm and S1/S2
GI: Soft, Nontender, Nondistended and Normal Bowel Sounds
Skin: Warm and Dry
Neuro: Awake, Alert, Oriented and AO x 3
Psych: Calm and Intact Judgement/Insight
Data Reviewed
-
Labs: Labs Reviewed by me
[2023-09-16 12:04] LABS: Iron 100 ug/dl (49-181)
[2023-09-16 12:04] LABS: Hematocrit 27.6 % (39.0-52.0); Hemoglobin 9.2 g/dL (13.0-18.0)
[2023-09-16] MEDS: ProAIR HFA INHALER 2 PUFF INH (12:04)
[2023-09-16 12:14] LABS: Percent Saturation 30 % (20-50); Total Iron Binding Capacity 329 ug/dl (261-462)
[2023-09-16] MEDS: NORCO 7.5/325 1 TABLET PO ×2 (12:28→17:19)
[2023-09-16 13:09] LABS: Folate > 20.0 ng/ml (2.76-20); Vitamin B12 363 pg/ml (239-931)
[2023-09-16 18:11] LABS: Hematocrit 26.4 % (39.0-52.0); Hemoglobin 9.2 g/dL (13.0-18.0)
[2023-09-17 03:00] VITALS: BP 126/73
[2023-09-17 06:34] LABS: Hematocrit 24.6 % (39.0-52.0); Hemoglobin 8.4 g/dL (13.0-18.0); Mean Corp Hgb Conc. 34.1 g/dL (33.0-37.0); Mean Corpuscular Hgb 35.1 pg (27.0-31.0); Mean Corpuscular Volume 102.9 fL (80.0-94.0); Mean Platelet Volume 10.2 fL (7.4-10.4); Platelet Count 189 10^3/uL (130-400); Red Blood Cell Count 2.39 10^6/uL (4.70-6.10); Red Cell Dist. Width 13.3 % (11.5-14.5); White Blood Cell Count 6.2 10^3/uL (4.8-10.8)
[2023-09-17 07:00] VITALS: BP 98/64
[2023-09-17 07:01] LABS: Blood Urea Nitrogen 18 mg/dl (9-20); Calcium 8.6 mg/dl (8.4-10.2); Carbon Dioxide 30 mmol/L (22-30); Chloride 103 mmol/L (98-107); Estimated Creatinine Clearance 116 ml/min; Glucose 103 mg/dl (70-99); Sodium 136 mmol/L (135-145); eGFR > 60.00
[2023-09-17] MEDS: PROTONIX IV 40 MG IV ×2 (07:26→21:08)
[2023-09-17] MEDS: NSS (PRESERVATIVE FREE) 10 ML IV ×2 (07:27→21:08)
[2023-09-17] MEDS: ZETIA 10 MG PO (07:27)
[2023-09-17] MEDS: NEURONTIN 300 MG PO ×3 (07:27→22:05)
[2023-09-17] MEDS: FOLVITE 1 MG PO (07:28)
[2023-09-17] MEDS: NORCO 7.5/325 2 TABLET PO (07:28)
[2023-09-17] MEDS: THIAMINE INJECTION 200 MG IV ×2 (07:28→16:25)
[2023-09-17] MEDS: DIOVAN 160 MG PO (07:35)
[2023-09-17] MEDS: TOPROL XL 25 MG PO (07:35)
--- NOTE | 2023-09-17 10:17 | PN.CDI ---
CDI
- -
CDI:
Physician Documentation Request
Admit Date: 09/15/23 21:41
Dear Doctor Fahad,
Please review the following and provide your response in the progress notes.
Clinical Indicators:
- 09/15 PN 'Chronic back pain on chronic oral opiates'
- 09/15 GI 'Chronic opiate use for chronic pain syndrome'
- Ford 7.5/325 3 tablets PO daily
If possible, please provide further specificity as outlined below:
Opiate use with dependence
Opiate use without dependence
Other
Use of terms such as suspected, likely, concern for, or probable (associated with a specific diagnosis that is being evaluated, monitored, or treated as if it exists) are acceptable and can be coded in the inpatient setting, when documented at the
time of discharge.
Thank you,
Anuj Jamison RN
CDI Specialist
Please use your independent medical judgment in providing your response.
--- NOTE | 2023-09-17 10:20 | W.PN.HOSP.TC ---
Addendum entered and electronically signed by Nidhi Vásquez MD 09/17/23 12:40:
# Opiate use with dependence
Original Note:
Today's Communication/Plan
-
BRBPR has resolved
advance diet to low cholesterol
cont to trend Hgb
anticipate DC if Hgb remain stable tmr
Assessment / Plan
Assessment / Plan
HPI: 63-year-old male PMH alcohol abuse, hypertension, HLD, COPD, diverticulosis, perforated diverticulitis status post colostomy/ileostomy in 2012 with subsequent reversal, Chronic back pain on chronic oral opiates; p/w BRBPR.
He reports eating mussels on 2 days [employer].
He denies to abdominal pain, cramping, fever, chills, no antibiotics or recent travel, no sick contacts.
A/P:
# BRBPR , possibly infectious
# Acute blood loss anemia due to above
C diff negative, stool parasite negative
Stool culture so far negative, Shiga toxin pending
Cont PPI BID
Appreciate GI input
Hgb today at 8.4 from 11.4 on admission, cont to trend Hgb
transfuse for Hgb < 7
# h/o perforated diverticulitis with prior colostomy/ileostomy status post reversal 2012
# Alcohol abuse
Patient drinks 4 to 8 ounces of vodka daily +36 ounces of IPA beer daily
MSAS protocol
IV thiamine, IV folate
# HTN�benign
Continue metoprolol succinate 25 mg daily with hold parameters
Continue valsartan 160 mg p.o. daily
Hold HCTZ 50 mg daily
BP stable
# HLD
Atorvastatin, ezetimibe
# GERD
PPI
# COPD�no acute exacerbation
Continue albuterol
# Morbid obesity due to excess calorie consumption
BMI 41
Weight loss recommended
# Chronic back pain on chronic oral opiates
May continue gabapentin 300 mg 3 times daily, hydrocodone 1 tab p.o. twice daily 1300 1800, 2 tablets p.o. daily
DVT prophylaxis SCDs
Full code
[facility] GI team
[facility] RN
Anticipated Discharge: 24 - 48 hours
Subjective/Interval History
-
Date of Service: September 17, 2023
Objective Data
-
Labs:
Laboratory Results
09/17/23
05:56
WBC 6.2
Hgb 8.4 L
Hct 24.6 L
Plt Count 189
Sodium 136
Potassium 4.0
Chloride 103
Carbon Dioxide 30
BUN 18
Creatinine 0.8
Glucose 103 H
Calcium 8.6
Vital Signs:
Vital Signs
Temp Pulse Resp BP Pulse Ox
36.8 C 82 18 120/78 96
09/17/23 07:00 09/17/23 07:35 09/17/23 07:00 09/17/23 07:35 09/17/23 07:00
I&O
09/16/23 09/17/23 09/18/23
06:59 06:59 06:59
Intake Total 750 / 750 1680 / 1680
Output Total 800 / 800 1475 / 1475
Balance -50 / -50 205 / 205
Review of Systems
-
All other systems: Reviewed and negative
Abdomen/GI: Denies Diarrhea or Bloody Stools
Physical Exam
-
General: Well Developed, Well Nourished, No Apparent Distress, Comfortable, Conversant and Morbidly Obese; Negative Respiratory Distress
HEENT: Normocephalic, Atraumatic, Nose Appears Normal and Ears Appear Normal; Negative Oxygen
Respiratory: Clear to Auscultation and Non Labored Respirations; Negative Accessory Resp Muscle Use
Cardiac: Regular Rhythm and S1/S2
GI: Soft, Nontender, Nondistended and Normal Bowel Sounds
Skin: Warm and Dry
Neuro: Awake, Alert, Oriented and AO x 3
Psych: Calm and Intact Judgement/Insight
Data Reviewed
-
Labs: Labs Reviewed by me
[2023-09-17 11:00] VITALS: BP 116/59
[2023-09-17] MEDS: NORCO 7.5/325 1 TABLET PO ×2 (12:00→17:19)
[2023-09-17 15:00] VITALS: BP 117/83
--- NOTE | 2023-09-17 15:30 | W.PN.GI.CBS2 ---
Addendum entered and electronically signed by Maren Hernández DO 09/17/23 18:08:
Patient seen and examined independently of PHYSICIAN AIDE. I agree with her note with my additions below
# Multiple bloody stools -hemoglobin is stabilized and no further GI bleeding. Stools are now forming
-- Likely an infectious diarrhea secondary to shellfish that was reheated
-- E. coli is still pending.
-- Patient is okay for discharge and will follow-up in our office for future colonoscopy with Dr. Meraz
--Repeat CBC in 1 week with PCP
-- Needs to decrease alcohol intake significantly and would consider alcohol + MASLD outpatient
GI will sign off. Please call with any questions
-- Office called him to set up an appointment and he will call them back tomorrow
Original Note:
Today's Communication / Plan
-
Diet as tolerated. Monitor H&H. Monitor for recurrent bleeding. If stable hemoglobin, likely okay for discharge in the morning. Outpatient follow-up for colonoscopy
Assessment / Plan
-
The pt is a 63 yo male with a PMH significant for diverticular disease with complicated and prolonged hospitalized for perforated diverticulitis status post colostomy/ileostomy in 2012 with reversal, chronic back pain on opiates, alcohol abuse,
hypertension, hyperlipidemia, COPD, obesity, FUENTES with CPAP use, prior GI bleeding suspected to be diverticular, who presented to the emergency room with complaints of diarrhea and rectal bleeding which we are being asked to evaluate for. He has an
outlined history for complicated diverticular disease status post bowel resection for perforated diverticulitis in 2012. He was seen in 2016 as above for GI bleeding found to have an ileocecal ulcer on colonoscopy with unrevealing pathology. He
also had an upper endoscopy which showed gastritis otherwise was normal. He notes eating left over muscles over the weekend and developed subsequent bright red blood per rectum. He denies any abdominal pain associated with the bleeding, but has
been having ongoing episodes with urgency. He denies any prior issues with his bowel such as constipation or diarrhea. He does not use any blood thinners or NSAIDs. He had prior GI bleeding in between his admission here in 2016 and now but the
bleeding essentially has self resolved. He does not follow with a GI doctor regularly. He does also drink alcohol in excess with beer and liquor. He has no history of liver disease. His platelets, albumin, and LFTs are all normal, suggesting
less likely advanced liver disease. He does have a history of intermittent anemia in the past. His hemoglobin was 11.4 on admission which dropped to 9.9 this morning with repeat hemoglobin pending. He continues with some intermittent bleeding
although this is darker now on color and occurring less frequently.
Problem list:
-Painless rectal bleeding, resolved
-History of complicated diverticular disease with perforation status post resection with colostomy/ileostomy in 2012 with reversal and prolonged hospitalization for sepsis
-Macrocytic anemia
-Elevated BUN
-Hypomagnesemia, resolved
-Elevated GGT
-Chronic opiate use for chronic pain syndrome
-chronic excessive alcohol use
Other pertinent medical history:
-Chronic right-sided heart failure
-COPD
-FUENTES with CPAP use
-Hypertension
-Hyperlipidemia
Recommendations:
-Etiology of rectal bleeding possibly secondary to diverticular disease given painless rectal bleeding versus AVMs versus infectious given he ate left over mussels versus other.
---His bleeding has subsided. He has had a drop of his hemoglobin down to 8.4 but again without bleeding. He is tolerating a regular diet.
-Reduce to once daily PPI
-Awaiting E. coli Shiga test otherwise stool culture, and for other infectious stool studies are unrevealing. There are a few white blood cells seen.
-Continue diet as tolerated
-He will need a colonoscopy, but this can be done outpatient if he remains stable and has no further bleeding. To consider EGD as well given his anemia.
-Continue to trend H/H. If stable in the AM with no recurrent bleeding, likely OK for discharge from GI standpoint. He has no iron deficiency
-I did advise reduction of alcohol intake and the risk of progression into liver disease
-He should repeat his CBC in 1 week outpatient, which can be done with his PCP
-Will arrange for an outpatient follow-up in 3-4 weeks in the office
Subjective
Subjective
Date of Service: September 17, 2023
The patient has had no further episodes of bleeding. He has no GI complaints today. He is tolerating a regular diet. Noted with a drop of his hemoglobin to 8.4, although again with no signs of bleeding. He is otherwise hemodynamically stable.
Objective
Data Reviewed
Laboratory Data:
Laboratory Results
09/17/23 05:56
Laboratory Results
PT 13.6 Sec (11.4-14.6) 09/15/23 23:22
INR 1.06 09/15/23 23:22
APTT 26.0 Sec (23.4-35.0) 09/15/23 23:22
Phosphorus 4.2 mg/dl (2.5-4.5) 09/15/23 23:22
Magnesium 2.0 mg/dl (1.6-2.3) 09/17/23 05:56
Total Bilirubin 1.2 mg/dl (0.2-1.3) 09/16/23 06:06
AST 37 U/L (17-59) 09/16/23 06:06
ALT 39 U/L (0-50) 09/16/23 06:06
Alkaline Phosphatase 78 U/L (38-126) 09/16/23 06:06
Vital Signs and I&O:
Vital Signs
Temp Pulse Resp BP Pulse Ox
98.1 F 76 18 116/59 96
09/17/23 11:00 09/17/23 11:00 09/17/23 11:00 09/17/23 11:00 09/17/23 11:00
I&O
09/16/23 09/17/23 09/18/23
06:59 06:59 06:59
Intake Total 750 / 750 1680 / 1680
Output Total 800 / 800 1475 / 1475
Balance -50 / -50
Physical Exam
Physical Exam
HEENT: Anicteric
Cardiology: S1 and S2 (RRR)
Pulmonary: Clear
GI: Soft, Non Tender, Normal Bowel Sounds and Other (obese abdomen)
[2023-09-17 16:01] LABS: Hematocrit 26.9 % (39.0-52.0); Hemoglobin 9.1 g/dL (13.0-18.0)
--- NOTE | 2023-09-17 16:17 | CM ---
Reviewed chart. Received consult for substance abuse counseling. Met with patient to obtain information for assessment. Patient stated that he lives with his in a one story home with one step to enter. He described himself as independent with
his ADLs, personal care, dressing and bathing. 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 He does admit to getting out of breath.
Patient drives and can get to appointments and can do all the shopping.
Patient has not had VN.
He has not been to a SNF.
Patient has a prescription plan and uses, [facility] in [place] for all of her medications.
His PCP is, Dr. Gato Haynes.
Patient denied needing any resources on etoh counseling. He stated that he understands that his health comes first and stated that he plans to stop drinking with the support of his spouse.
Plan: Case management will continue to follow and assist with discharge planning. Home when stable.
[2023-09-17] MEDS: NSS 1000 IV (16:24)
[2023-09-17] MEDS: LIPITOR 80 MG PO (17:19)
[2023-09-17 19:01] VITALS: BP 122/62
[2023-09-17 22:41] VITALS: BP 102/44
[2023-09-18] MEDS: THIAMINE INJECTION 200 MG IV ×2 (00:06→08:25)
[2023-09-18 03:47] VITALS: BP 132/80
[2023-09-18 06:46] LABS: Hematocrit 24.5 % (39.0-52.0); Hemoglobin 8.5 g/dL (13.0-18.0); Mean Corp Hgb Conc. 34.7 g/dL (33.0-37.0); Mean Corpuscular Hgb 35.9 pg (27.0-31.0); Mean Corpuscular Volume 103.4 fL (80.0-94.0); Mean Platelet Volume 10.4 fL (7.4-10.4); Platelet Count 201 10^3/uL (130-400); Red Blood Cell Count 2.37 10^6/uL (4.70-6.10); Red Cell Dist. Width 13.4 % (11.5-14.5)
[2023-09-18 07:38] LABS: Blood Urea Nitrogen 17 mg/dl (9-20); Carbon Dioxide 23 mmol/L (22-30); Chloride 106 mmol/L (98-107); Estimated Creatinine Clearance > 125 ml/min; Glucose 113 mg/dl (70-99); Magnesium 1.9 mg/dl (1.6-2.3); Potassium 4.5 mmol/L (3.5-5.1); Sodium 138 mmol/L (135-145); eGFR > 60.00
[2023-09-18 07:46] VITALS: BP 148/79
[2023-09-18] MEDS: DIOVAN 160 MG PO (08:20)
[2023-09-18] MEDS: NORCO 7.5/325 2 TABLET PO (08:21)
[2023-09-18] MEDS: ZETIA 10 MG PO (08:21)
[2023-09-18] MEDS: NEURONTIN 300 MG PO (08:22)
[2023-09-18] MEDS: TOPROL XL 25 MG PO (08:22)
[2023-09-18] MEDS: FOLVITE 1 MG PO (08:23)
[2023-09-18] MEDS: PROTONIX IV 40 MG IV (08:24)
[2023-09-18] MEDS: NSS (PRESERVATIVE FREE) 10 ML IV (08:24)
--- NOTE | 2023-09-18 10:31 | W.PN.HOSP.TC ---
Addendum entered and electronically signed by Nidhi Vásquez MD 09/18/23 13:57:
total DC time 36 min
Original Note:
Today's Communication/Plan
-
DC home today
Assessment / Plan
Assessment / Plan
HPI: 63-year-old male PMH alcohol abuse, hypertension, HLD, COPD, diverticulosis, perforated diverticulitis status post colostomy/ileostomy in 2012 with subsequent reversal, Chronic back pain on chronic oral opiates; p/w BRBPR.
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
He denies to abdominal pain, cramping, fever, chills, no antibiotics or recent travel, no sick contacts.
A/P:
# BRBPR , possibly infectious, resolved
# Acute blood loss anemia due to above
C diff negative, stool parasite negative, Stool culture negative
Cont PPI BID
Appreciate GI input
Hgb today at 8.5 from 11.4 on admission, Hgb now stable at around 8, OK for discharge
# h/o perforated diverticulitis with prior colostomy/ileostomy status post reversal 2012
# Alcohol abuse
Patient drinks 4 to 8 ounces of vodka daily +36 ounces of IPA beer daily
MSAS protocol
IV thiamine, IV folate
# HTN�benign
Continue metoprolol succinate 25 mg daily with hold parameters
Continue valsartan 160 mg p.o. daily
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
# HLD
Atorvastatin, ezetimibe
# GERD
PPI
# COPD�no acute exacerbation
Continue albuterol
# Morbid obesity due to excess calorie consumption
BMI 41
Weight loss recommended
# Chronic back pain on chronic oral opiates
May continue gabapentin 300 mg 3 times daily, hydrocodone 1 tab p.o. twice daily 1300 1800, 2 tablets p.o. daily
DVT prophylaxis SCDs
Full code
Anticipated Discharge: Today
Subjective/Interval History
-
Date of Service: September 18, 2023
Objective Data
-
Labs:
Laboratory Results
09/18/23
06:17
WBC 8.0
Hgb 8.5 L
Hct 24.5 L
Plt Count 201
Sodium 138
Potassium 4.5
Chloride 106
Carbon Dioxide 23
BUN 17
Creatinine 0.7
Glucose 113 H
Calcium 9.0
Vital Signs:
Vital Signs
Temp Pulse Resp BP Pulse Ox
36.8 C 80 16 148/79 97
09/18/23 07:46 09/18/23 08:22 09/18/23 07:46 09/18/23 08:22 09/18/23 07:46
I&O
09/17/23 09/18/23 09/19/23
06:59 06:59 06:59
Intake Total 1680 / 1680 1200 / 1200
Output Total 1475 / 1475 650 / 650
Balance 205 / 205 550 / 550
Review of Systems
-
All other systems: Reviewed and negative
Abdomen/GI: Denies Diarrhea or Bloody Stools
Physical Exam
-
General: Well Developed, Well Nourished, No Apparent Distress, Comfortable, Conversant and Morbidly Obese; Negative Respiratory Distress
HEENT: Normocephalic, Atraumatic, Nose Appears Normal and Ears Appear Normal; Negative Oxygen
Respiratory: Clear to Auscultation and Non Labored Respirations; Negative Accessory Resp Muscle Use
Cardiac: Regular Rhythm and S1/S2
GI: Soft, Nontender, Nondistended and Normal Bowel Sounds
Skin: Warm and Dry
Neuro: Awake, Alert, Oriented and AO x 3
Psych: Calm and Intact Judgement/Insight
Data Reviewed
-
Labs: Labs Reviewed by me
--- NOTE | 2023-09-18 11:05 | CM ---
Received notification that patient has been medically cleared for discharge. Met with patient who stated that his will be here to drive him home.
Plan: Case management will continue to follow and assist with discharge planning. Home.
[2023-09-18 11:09] VITALS: BP 129/72
--- NOTE | 2023-09-18 11:25 | CM ---
Reviewed chart, Spoke with Nichelle in admissions at [facility], [facility], and [facility]. Reviewed with patient. He requested [facility]. Placed a call to Mirna in admissions at [facility] who stated that she will not have bed
availability today. Met with patient again who stated that he could not decide between the three facilities. Received call from Nichelle in admissions for all three facilities who stated that she may have a bed at [facility]. She stated that she will
call with availability at each facility for today. Will review with patient and attempt auth today in anticipation of discharge.
Plan: Case management will continue to follow and assist with discharge planning. SNF when stable.
--- NOTE | 2023-09-18 11:57 | PTCARENOTE ---
Assumed care of pt from previous nurse, pt denies pain. Pt is on tele running nsr. Pt call ramos is within reach, pt rings dusty. Pt denies any bloody stool at this time. Pt for dc today. will cont to monitor.
--- NOTE | 2023-09-18 13:31 | W.DCSUMMARY ---
Discharge Summary
Discharge Data
Date of Admission: 09/15/23
Date of Discharge: 09/18/23
-
Pending Results: No
Hospital Course
Principal Diagnosis:
Bright red blood per rectum with acute blood loss anemia, likely due to infectious acute viral gastroenteritis, resolved.
Chronic Diagnoses:�
History of perforated diverticulitis with prior colostomy/ileostomy status post reversal 2012
Alcohol abuse
Hypertension
Hyperlipidemia
Gastroesophageal reflux disease
Chronic obstructive pulmonary disease
Morbid obesity due to excess calorie consumption
Chronic back pain on chronic oral opiates
Consultations:�
Gastroenterology
Procedures:�
None
Clinical course:�
This is a 63-year-old male with past medical history as stated above, who presented with bloody diarrhea after having eaten reheated mussels.
Problem 1:
Bright red blood per rectum with acute blood loss anemia, likely due to infectious acute viral gastroenteritis, resolved.
This happened after he ate reheated mussels.
His GI symptoms (abdominal cramping and bloody diarrhea) resolved during his hospital stay.
His stool studies were unrevealing: C diff negative, stool parasite negative, Stool culture negative.
His hemoglobin did drop from 11 on admission to around 8, and remained stable at 8.5 on the day of discharge, hence he was cleared for discharge.
As for the rest of his medical problems, they were stable during his hospital stay.
Discharge Plan
-
Patient Disposition: Home (Routine Discharge)
Discharge Diagnosis/Procedures: Multiple bloody stools (resolved) likely infectious diarrhea secondary to shellfish that was reheated
Condition: Fair
Diet: As tolerated, Low Fat, Low Cholesterol and 2 Gram Sodium
Activity: With assistance
Driving Restrictions: As prior to admission
Blood Work: CBC in 1 week, result to PCP
Referrals:
Gtao Haynes MD [Family Provider] - in less than 1 week
Prescriptions:
Continued
lansoprazole [Prevacid] 30 MG capsule,delayed release(DR/EC)
30 mg PO DAILY
metoprolol succinate 25 MG tablet extended release 24 hr
25 mg PO DAILY Qty: 60 0RF
albuterol sulfate 1 PUFF HFA aerosol inhaler
2 puff inhalation R Q4HPRN PRN (Reason: SOB) Qty: 1 0RF
atorvastatin 80 mg tablet
80 mg PO Q48H
hydrochlorothiazide 50 mg tablet
50 mg PO DAILY
hydrocodone-acetaminophen 10-325 mg tablet
2 tab PO DAILY
Patient Comments:
09/15/2023: last filled 08/27/23, 120 tabs for 30 days from [facility]
hydrocodone-acetaminophen 10-325 mg tablet
1 tab PO BID@1300,1800
Patient Comments:
09/15/2023: last filled 08/27/23, 120 tabs for 30 days from [facility]
gabapentin 300 mg capsule
300 mg PO TID
valsartan 160 mg tablet
160 mg PO DAILY
ezetimibe 10 mg tablet
10 mg PO DAILY
Discharge Orders:
Discharge Patient (As Directed); Ordered 09/18/23
Ordered By: Nidhi Vásquez
Discharge Date and Time
Discharge Date/Time: 09/18/23 13:38
Print Language: LATVIAN
== END 2023-09-18 13:38 | disposition home or self-care (01) | DRG 392 ==
LOC: 3 WEST ACU 21:41
PROVIDERS: Clinical Nurse Specialist Family Health; Nurse Practitioner Family; ADMITTING PHYSICIAN Internal Medicine; ATTENDING PHYSICIAN Internal Medicine; CONSULT PHYSICIAN Internal Medicine; EMERGENCY PHYSICIAN Emergency Medicine; FAMILY PHYSICIAN Family Medicine
DX: A08.4 Viral intestinal infection, unspecified (principal); Z68.41 Body mass index [BMI] 40.0-44.9, adult; D62 Acute posthemorrhagic anemia; F11.20 Opioid dependence, uncomplicated; I10 Essential (primary) hypertension; E78.5 Hyperlipidemia, unspecified; J44.9 Chronic obstructive pulmonary disease, unspecified; G89.4 Chronic pain syndrome; M54.9 Dorsalgia, unspecified; E66.01 Morbid (severe) obesity due to excess calories; F10.10 Alcohol abuse, uncomplicated; K21.9 Gastro-esophageal reflux disease without esophagitis; E83.42 Hypomagnesemia; G47.33 Obstructive sleep apnea (adult) (pediatric); Z87.19 Personal history of other diseases of the digestive system
CPT/HCPCS: 80048; 80053; 80306; 80307; 81003; 82010; 82077; 82607; 82728; 82746; 82977; 83540; 83550; 83735; 84100; 85014; 85018; 85025; 85027; 85610; 85730; 86803; 86850; 86900; 86901; 87045; 87046; 87324; 87328; 87329; 87427; 87449; 89055; 94640; 97116; 97162; 97165; 99285

== ENCOUNTER 2023-12-04 19:49 | Inpatient (IN) | payer OTHER, SELFPAY ==
[2023-12-04] VITALS (18 sets, daily range): BP systolic 107–179; BP diastolic 60–104; BMI 40.3; BMI 40.2
--- NOTE | 2023-12-04 17:48 | ED.GENMED ---
History of Present Illness
General
Chief Complaint: Blood Sugar Problem
Source: patient
Exam Limitations: none
Time Seen by Provider: 12/04/23 17:22
Nursing documentation reviewed up to this point in time: agreed with
History of Present Illness
History of Present Illness:
63-year-old male with a past medical history of hypertension, hyperlipidemia, COPD, obesity, diverticulitis status post colectomy, chronic low back pain who presents to the ER sent in by his primary doctor for severe hyperglycemia. Patient reports
that he has previously been diagnosed with prediabetes. He says that over the past 2 weeks he has had polyuria and polydipsia and generalized fatigue. He went to see his primary doctor and had lab work drawn on Friday, today received a call that
he was severely hyperglycemic and was referred to the ER to be evaluated. He denies any fevers or chills. He denies any shortness of breath or chest pain. He denies any abdominal pain, nausea, vomiting. He denies any other complaints. He says
he was started on metformin yesterday and has taken 2 doses so far. Previously was not on anything for diabetes. Of note, while his symptoms started 2 weeks ago he did have steroid injection for his chronic low back pain 1 week ago; he says he has
had hyperglycemia related to steroid injections in the past.
Past History
Past History
ED Past Medical History: GERD, HTN and Other (Diverticulosis)
ED Past Surgical History: Orthopedic (knee replacement) and Other (colonoscopy/endoscopy)
Social History
Tobacco: Non-smoker (Cigars)
Alcohol: Occasional
Drug: None
Personal:
Living: with family
Family History
Family History: Other (n/c)
Review of Systems
Review of Systems
All Other Systems: ROS reviewed and negative except as documented in HPI and ROS
Constitutional: Reports fatigue; Denies fever or chills
EENT: Denies sore throat or runny nose
Respiratory: Denies cough or trouble breathing
Cardiac: Denies chest pain or palpitations
ABD/GI: Denies abdominal pain, nausea or vomiting
: Denies flank pain
Musculoskeletal: Denies neck pain or back pain
Neurological: Denies dizzy or headache
Endocrine: Reports polyuria and polydipsia
Phy Exam
Physical Exam
Physical Exam:
General: Awake, alert, oriented x3; no acute distress
Head: Normocephalic, atraumatic
Eyes: Conjunctiva normal
Throat: Airway intact, dry mucous membranes
Neck: Trachea midline, supple without meningismus
Lungs: Clear to auscultation bilaterally, no wheezing, rales, rhonchi
Heart: Tachycardia with regular rhythm, no murmurs, gallops, or rubs
Abd: Soft, non distended, nontender
Neuro: No gross deficits
Skin: no rash
Extremities: Trace edema in the lower extremities, equal pulses in all extremities
Scores
Heart Failure Risk
Heart Failure Risk Score: Not Applicable
Heart Score for Chest Pain Patients
STEMI patient?: Not applicable
Withdrawal Assessment of Alcohol
Withdrawal Assessment Completed?: Not applicable
Course
Orders/Labs/Results
Orders:
Orders
12/04/23 17:37
Urinalysis Reflex To Culture Urgent
0.9% Sodium Chloride 1000 ml [Nss] 1,000 ml IV BOLUS
12/04/23 17:47
Acetone [B-Hydroxybutyrate] Urgent
Complete Blood Count/With Diff Urgent
Comprehensive Metabolic Panel Urgent
Hemoglobin A1c [Glycohemoglobin (HgbA1c)] Urgent
Venous Blood Gas Urgent
%Oxygen/Room Air: 100
12/04/23 18:33
Insulin Human Regular [Novolin R] 11 units IV NOW STA
Reg Insulin 100 Units/100 ml [Novolin R Insulin Infusion] 100 units in 100 ml IV NOW
12/04/23 18:34
Bedside Glucose- Treatment Q1H
IV Insert/Care/Rem.- Treatment PRN
12/04/23 18:45
Basic Metabolic Panel Q2H
12/04/23 19:00
KCl 20 Meq/0.9%Sodchl 1000 ml [NSS with KCL 20 MEQ] 20 meq in 1,000 ml IV 250 mls/hr
12/04/23 20:45
Basic Metabolic Panel Q2H
12/04/23 22:45
Basic Metabolic Panel Q2H
Abnormal Lab Results
12/04/23
17:47
WBC 11.4 H 10^3/uL
(4.8-10.8)
RBC 3.96 L 10^6/uL
(4.70-6.10)
Hgb 11.4 L g/dL
(13.0-18.0)
Hct 34.3 L %
(39.0-52.0)
RDW 14.8 H %
(11.5-14.5)
Absolute Neuts (auto) 8.3 H 10^3/uL
(1.4-6.5)
Absolute Monos (auto) 0.9 H 10^3/uL
(0.1-0.6)
Lymphocytes % 18.9 L %
(20.5-51.1)
VBG pO2 162 H mmHg
(30-50)
VBG HCO3 18.9 L mmol/L
(22-27)
Sodium 132 L mmol/L
(135-145)
Chloride 92 L mmol/L
(98-107)
Carbon Dioxide 18 L mmol/L
(22-30)
BUN 26 H mg/dl
(9-20)
Glucose 577 H* mg/dl
(70-99)
Calcium 10.6 H mg/dl
(8.4-10.2)
12/04/23 17:47
12/04/23 17:47
Vital Signs
Initial and Last Documented VS:
Initial Vital Signs
Temp Pulse Resp BP Pulse Ox
36.6 C 95 16 179/104 100
12/04/23 17:16 12/04/23 17:16 12/04/23 17:16 12/04/23 17:16 12/04/23 17:16
Last Documented Vital Signs
Temp Pulse Resp BP Pulse Ox
36.6 C 95 24 161/86 88
12/04/23 17:16 12/04/23 18:00 12/04/23 18:00 12/04/23 18:00 12/04/23 18:00
MDM/Problems Addressed
Differential Diagnosis Includes:
Hyperglycemia, DKA, HHS
MDM/Problems Addressed:
63-year-old male presents to the ER sent in for severe hyperglycemia. Has had polyuria and polydipsia as well as generalized fatigue for the past 2 weeks; notably had steroid injection in the low back a week ago. Hypertensive and tachycardic
otherwise normal vitals. Physical exam as above. Will check labs including a CBC and a CMP, A1c, VBG, beta hydroxybutyrate, urinalysis. Provide IV fluids. Reassess after the above
Labs reviewed: CBC shows leukocytosis in the setting of recent steroid injection. Hemoglobin marginally low at 11.4. CMP shows signs concerning for DKA with a glucose of 577, metabolic acidosis with a bicarb of 18 increased anion gap of 22. Will
start on insulin infusion. Maintenance fluids with potassium added�potassium 4.1 on CMP. Will admit for continued management of new onset diabetes and acute DKA likely exacerbated by recent steroid injection. Case discussed with hospitalist.
Chronic conditions affecting care:
Obesity
Acute Exacerbation and/or Progression of Chronic Illness:
Acute hyperglycemia manage as above
*Pulse Oximetry
Patient hypoxic: no
*Critical Care Note
Total Time (30-74mins, 75-104mins- exclusive of procedures): Not Applicable
Data Reviewed
Source: patient, records and spouse
Patient Management
Discussion with other providers: Hospitalist (Discussed with hospitalist)
Escalation/DeEscalation of care consider admission/obs:
Admission indicated
ED Attending Note
-
Portions of this chart may have been created with voice recognition software.� Occasional wrong word or��sound alike� substitutions may have occurred due to the inherent limitations of voice recognition software.
Discharge Plan
Departure
Patient Disposition: Admit
Date of Disposition: 12/04/23
Time of Disposition: 18:38
Admit to doctor: Shelly
Presentation/result/management discussed w/ accepting MD/DO: Hospitalist
Discharge Problem:
DKA (diabetic ketoacidosis), Diabetes mellitus, new onset
Prescriptions:
No Action
lansoprazole [Prevacid] 30 MG capsule,delayed release(DR/EC)
30 mg PO DAILY
metoprolol succinate 25 MG tablet extended release 24 hr
25 mg PO DAILY Qty: 60 0RF
albuterol sulfate 1 PUFF HFA aerosol inhaler
2 puff inhalation R Q4HPRN PRN (Reason: SOB) Qty: 1 0RF
atorvastatin 80 mg tablet
80 mg PO Q48H
hydrochlorothiazide 50 mg tablet
50 mg PO DAILY
hydrocodone-acetaminophen 10-325 mg tablet
2 tab PO DAILY
Patient Comments:
09/15/2023: last filled 08/27/23, 120 tabs for 30 days from [facility]
hydrocodone-acetaminophen 10-325 mg tablet
1 tab PO BID@1300,1800
Patient Comments:
09/15/2023: last filled 08/27/23, 120 tabs for 30 days from [facility]
gabapentin 300 mg capsule
300 mg PO TID
valsartan 160 mg tablet
160 mg PO DAILY
ezetimibe 10 mg tablet
10 mg PO DAILY
Referrals:
Gato Haynes MD [Family Provider] -
Interventions
Interventions:
*Risk Screen - Suicide Last Done: 12/04/23 17:16
*General Assessment Last Done: 12/04/23 17:34
*Neglect/Abuse Screening Last Done: 12/04/23 17:34
ED- Fall Risk Assessment Last Done: 12/04/23 17:34
*ED COVID-19 Vaccine History Last Done: 12/04/23 17:34
ED- Neurological Assessment Last Done: 12/04/23 17:34
Discharge Date and Time
Print Language: SLOVENIAN
[2023-12-04] MEDS: NSS 1000 IV (17:56)
[2023-12-04 18:08] LABS: % Basophils 0.3 % (0-2); % Eosinophils 0.3 % (0-6); % Immature Granulocytes 0.3 % (0-0.5); % Lymphocytes 18.9 % (20.5-51.1); % Monocytes 7.6 % (1.7-9.3); % Neutrophils 72.6 % (42.2-75.2); Absolute Lymphocytes 2.2 10^3/uL (1.2-3.4); Absolute Monocytes 0.9 10^3/uL (0.1-0.6); Absolute Neutrophils 8.3 10^3/uL (1.4-6.5); Hematocrit 34.3 % (39.0-52.0); Hemoglobin 11.4 g/dL (13.0-18.0); Mean Corp Hgb Conc. 33.2 g/dL (33.0-37.0); Mean Corpuscular Hgb 28.8 pg (27.0-31.0); Mean Corpuscular Volume 86.6 fL (80.0-94.0); Mean Platelet Volume 10.2 fL (7.4-10.4); Nucleated Red Blood Cells % 0 % (-); Platelet Count 357 10^3/uL (130-400); Red Blood Cell Count 3.96 10^6/uL (4.70-6.10); Red Cell Dist. Width 14.8 % (11.5-14.5); White Blood Cell Count 11.4 10^3/uL (4.8-10.8)
[2023-12-04 18:14] LABS: Venous Blood Gas B.E. -6.1 mmol/L (-4 to +4); Venous Blood Gas HCO3 18.9 mmol/L (22-27); Venous Blood Gas O2 Sat % 95.9 %; Venous Blood Gas pCO2 35 mmHg (35-48); Venous Blood Gas pH 7.34 (7.32-7.43); Venous Blood Gas pO2 162 mmHg (30-50)
[2023-12-04 18:29] LABS: ALT (SGPT) 33 U/L (0-50); AST (SGOT) 25 U/L (17-59); Albumin 4.4 g/dl (3.5-5.0); Alkaline Phosphatase 88 U/L (38-126); Blood Urea Nitrogen 26 mg/dl (9-20); Calcium 10.6 mg/dl (8.4-10.2); Carbon Dioxide 18 mmol/L (22-30); Chloride 92 mmol/L (98-107); Estimated Creatinine Clearance 102 ml/min; Glucose 577 mg/dl (70-99); Potassium 4.1 mmol/L (3.5-5.1); Sodium 132 mmol/L (135-145); Total Bilirubin 0.6 mg/dl (0.2-1.3); eGFR > 60.00
[2023-12-04 18:37] LABS: B-Hydroxybutyrate 5.52 mmol/L (0.02-0.27)
[2023-12-04 19:13] LABS: Glucose - Point of Care 456 mg/dl (70-99)
[2023-12-04] MEDS: NOVOLIN R 11 UNITS IV (19:15)
[2023-12-04] MEDS: NOVOLIN R INSULIN INFUSION 100 IV ×2 (19:16→21:03)
[2023-12-04] MEDS: NSS with KCL 20 MEQ 1000 IV (19:16)
--- NOTE | 2023-12-04 19:19 | HPS.HSE ---
Family Physician
-
Family Physician: Gato Haynes
Chief Complaint
-
Elevated Blood Sugar
History of Present Illness
Patient is a 63 y/o male past medical history of new diagnosed diabetes mellitus, essential hypertension, hyperlipidemia and COPD who presents with elevated blood sugars. Patient reports about 3 weeks ago he started developing polyuria and
polydipsia. He also reports associated blurry vision. About one weeks ago he had an epidural steroid injection, after which his symptoms worsened. He denies fevers, sweats or chills. He denies nausea, vomiting or diarrhea.
Medical History
Past Medical History
Past Medical History: Reports Other
Additional Past Medical History:
Diabetes Mellitus, Type II
Essential Hypertension
Hyperlipidemia
COPD
Alcohol Use Disorder
Perforated Diverticulitis s/p ileostomy with subsequent reversal
Past Surgical History: Reports Other
Additional Past Surgical History:
Ileostomy with Subsequent Reversal
Bilateral Knee Replacement
Tonsillectomy
Social History
Tobacco: Other (Quit smoking cigarettes about 40 years ago; Now smokes occasional cigar)
Alcohol: Former (Patient reports being sober for the past 3 months)
Family History
Family History: Not pertinent
Allergies / Home Medications
Allergies reflects when Allergies were last updated in [email or web address].
Home Medications with original date entered in [email or web address]
Allergy/Medication List:
Allergies
Allergy/AdvReac Type Severity Reaction Status Date / Time
ciprofloxacin [From Cipro] Allergy JOINT PAIN Verified 12/04/23 17:18
ciprofloxacin HCl Allergy JOINT PAIN Verified 12/04/23 17:18
[From Cipro]
oxycodone Allergy ORAL Verified 12/04/23 17:18
Swelling
Home Medications
lansoprazole 30 mg capsule,delayed release (Prevacid) 30 mg PO DAILY Gastrointestinal issue 06/20/20
albuterol sulfate 90 mcg/actuation aerosol inhaler 2 puff inhalation R Q4HPRN PRN SOB ##1 06/23/20
metoprolol succinate 25 mg tablet,extended release 24 hr 25 mg PO DAILY Blood pressure #60 tabs 06/23/20
atorvastatin 80 mg tablet 80 mg PO DAILY High Cholesterol 09/15/23
ezetimibe 10 mg tablet 10 mg PO DAILY High Cholesterol 09/15/23
gabapentin 300 mg capsule 300 mg PO Q6H Neurological Condition 09/15/23
hydrochlorothiazide 50 mg tablet 50 mg PO DAILY Blood Pressure 09/15/23
hydrocodone 10 mg-acetaminophen 325 mg tablet 1 tab PO Q6H Pain 09/15/23
valsartan 160 mg tablet 160 mg PO DAILY Blood Pressure 09/15/23
metformin 500 mg tablet,extended release 24 hr 1,000 mg PO DAILY 12/04/23
pioglitazone 15 mg tablet 15 mg PO DAILY 12/04/23
therapeutic multivitamin 1 tab PO DAILY 12/04/23
Review of Systems
-
A 12 point ROS was completed and negative except as noted: Yes
Constitutional: Denies Fever or Chills
Respiratory: Denies Cough or Trouble Breathing
Cardiac: Denies Chest Pain or Palpitations
Abdomen/GI: Denies Abdominal Pain, Nausea, Vomiting or Diarrhea
Physical Exam
Vital Signs
Vital Signs
Temp Pulse Resp BP Pulse Ox
98 F 95 24 161/86 88
12/04/23 17:16 12/04/23 18:00 12/04/23 18:00 12/04/23 18:00 12/04/23 18:00
Physical Exam
General: Comfortable and Conversant
HEENT: Anicteric and Moist mucous membranes
Respiratory: Clear and Non Labored Respirations
Cardiac: S1/S2 and Regular Rhythm
GI: Soft, Non Tender and Other (Protuberant)
Rectal: Deferred by Provider
Musculoskeletal: No Clubbing, No Cyanosis and Other (+1 pitting edema bilateral lower ext)
Skin: Warm and Dry
Neuro: Awake, Alert, Oriented and Nonfocal/grossly intact
Psych: Calm
Laboratory Results
-
12/04/23 17:47
Laboratory Results
Total Bilirubin 0.6 mg/dl (0.2-1.3) 12/04/23 17:47
AST 25 U/L (17-59) 12/04/23 17:47
ALT 33 U/L (0-50) 12/04/23 17:47
Alkaline Phosphatase 88 U/L (38-126) 12/04/23 17:47
Data Reviewed
-
Lab Data: Labs Reviewed by me
Impression/Plan
-
HHS / Mild DKA
-Admit to ICU
-Continue insulin drip
-Continue IVFs
-Consult Dietary for diabetic diet education
-Consult Diabetic Education
Essential Hypertension
-Hold HCTZ
-Continue metoprolol and valsartan
Hyperlipidemia
-Continue Zetia and Atorvastatin
COPD, no acute exacerbation
-Continue albuterol
Alcohol Use Disorder
-Patient reports being sober for the past 3 months
DVT proph: Lovenox
Code Status: Full Code
--- NOTE | 2023-12-04 19:30 | W.PN.UPDATE ---
Addendum entered and electronically signed by Tad Bravo MD 12/04/23 19:43:
Correction. IV fluids with Potassium.
Original Note:
Update Note
Progress Note Update
This is an addendum to the H&P written by Talita Chen. 63-year-old male past medical history of type 2 diabetes, hypertension, hyperlipidemia, COPD, obesity, diverticular status post colectomy, chronic lower back pain here for polyuria,
polydipsia and generalized fatigue secondary to DKA secondary to steroid injection. Blood sugars in the 500s.
Labs showed bicarbonate of 18. VBG shows pH of 7.34. HHS/mild DKA secondary to steroid injection. NPO. Check urinalysis. IV fluids with bicarbonate. Check magnesium and phosphorus. Insulin drip. 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 Hold hydrochlorothiazide,
metformin pioglitazone.
[2023-12-04 20:15] LABS: Urine Albumin Negative (Neg - Trace); Urine Bilirubin Negative (Negative); Urine Character Clear (Clear); Urine Color Yellow; Urine Glucose 3+ (Negative); Urine Ketone 3+ (Negative); Urine Leukocyte Negative (Negative); Urine Nitrite Negative (Negative); Urine Occult Blood Negative (Negative); Urine Specific Gravity 1.015 (<1.030); Urine Urobilinogen Negative (Neg - 1+)
[2023-12-04 20:35] LABS: Glucose - Point of Care 239 mg/dl (70-99)
--- NOTE | 2023-12-04 21:00 | PTCARENOTE ---
report received. aaox3. vss. nsr. glucose 227. insulin gtt titrated 3units/hr per protocol. d51/2nssw/20k @150cc/hr. pt asymptomatic. call rmaos in reach. plan of care updated. will monitor.
[2023-12-04 21:11] LABS: Glucose - Point of Care 227 mg/dl (70-99)
[2023-12-04] MEDS: D5/0.45%NSS with KCL 20 MEQ 1000 IV (21:25)
[2023-12-04] MEDS: NEURONTIN 300 MG PO (21:26)
[2023-12-04 22:15] LABS: Glucose - Point of Care 215 mg/dl (70-99)
[2023-12-04 22:33] LABS: Blood Urea Nitrogen 22 mg/dl (9-20); Carbon Dioxide 20 mmol/L (22-30); Chloride 97 mmol/L (98-107); Estimated Creatinine Clearance > 125 ml/min; Glucose 214 mg/dl (70-99); Potassium 3.5 mmol/L (3.5-5.1); Sodium 134 mmol/L (135-145); eGFR > 60.00
[2023-12-04 23:11] LABS: Glucose - Point of Care 208 mg/dl (70-99)
[2023-12-05] VITALS (41 sets, daily range): BP systolic 105–190; BP diastolic 62–136; PULSE 2–88; BMI 40.2
[2023-12-05 00:16] LABS: Glucose - Point of Care 256 mg/dl (70-99)
[2023-12-05 01:03] LABS: Glucose - Point of Care 256 mg/dl (70-99)
[2023-12-05 02:09] LABS: Glucose - Point of Care 335 mg/dl (70-99)
--- NOTE | 2023-12-05 03:00 | PTCARENOTE ---
assessment unchanged. aaox3. nsr. insulin gtt infusing per protocol. pt urinating in urinal and intermittently sleeping. will monitor.
[2023-12-05 03:15] LABS: Glucose - Point of Care 254 mg/dl (70-99)
[2023-12-05] MEDS: D5/0.45%NSS with KCL 20 MEQ 1000 IV (04:10)
[2023-12-05] MEDS: NEURONTIN 300 MG PO ×4 (04:11→22:09)
[2023-12-05 04:14] LABS: Glucose - Point of Care 306 mg/dl (70-99)
[2023-12-05 04:49] LABS: Hematocrit 32.5 % (39.0-52.0); Hemoglobin 11.1 g/dL (13.0-18.0); Mean Corp Hgb Conc. 34.2 g/dL (33.0-37.0); Mean Corpuscular Hgb 30.2 pg (27.0-31.0); Mean Corpuscular Volume 88.6 fL (80.0-94.0); Mean Platelet Volume 10.6 fL (7.4-10.4); Platelet Count 266 10^3/uL (130-400); Red Blood Cell Count 3.67 10^6/uL (4.70-6.10); Red Cell Dist. Width 14.7 % (11.5-14.5); White Blood Cell Count 8.3 10^3/uL (4.8-10.8)
[2023-12-05 05:04] LABS: Blood Urea Nitrogen 17 mg/dl (9-20); Calcium 9.6 mg/dl (8.4-10.2); Carbon Dioxide 24 mmol/L (22-30); Chloride 98 mmol/L (98-107); Estimated Creatinine Clearance > 125 ml/min; Glucose 236 mg/dl (70-99); Potassium 3.6 mmol/L (3.5-5.1); Sodium 135 mmol/L (135-145); eGFR > 60.00
[2023-12-05 05:12] LABS: Glucose - Point of Care 265 mg/dl (70-99)
[2023-12-05 05:19] LABS: INR 0.97; PT 12.9 Sec (11.4-14.6)
[2023-12-05 05:21] LABS: APTT 24.7 Sec (23.4-35.0)
[2023-12-05 06:03] LABS: Glucose - Point of Care 270 mg/dl (70-99)
[2023-12-05 07:12] LABS: Glucose - Point of Care 279 mg/dl (70-99)
[2023-12-05] MEDS: DIOVAN 160 MG PO (08:22)
[2023-12-05] MEDS: PROTONIX 40 MG PO (08:22)
[2023-12-05] MEDS: ZETIA 10 MG PO (08:22)
[2023-12-05] MEDS: TOPROL XL 25 MG PO (08:26)
[2023-12-05] MEDS: LIPITOR 80 MG PO (08:26)
--- NOTE | 2023-12-05 08:27 | CON.INTV ---
Consultation
Consultation Request
Date/Time Consultation Requested: 12/04/20232129
Date/Time Consultation Performed: 12/05/2023811
Requesting Provider: KALYAN Fall
Performing Provider: Genaro Gupta MD
Reason for Consultation: Hyperglycemia with suspected HHNK
Medical History
-
Chief Complaint: Elevated blood glucose
History of Present Illness:
63-year-old male former tobacco smoker with a past medical history of DM type II, severe FUENTES on nocturnal BiPAP 23/19 cmH2O, history of OHS, RV dysfunction, mild pulmonary hypertension, history of COVID-19, seasonal allergies, hyperlipidemia,
hypertension and history of diverticulitis s/p colectomy with ileostomy s/p reversal who presents with elevated glucose, fatigue, blurry vision and increased urination. About 1 week ago he had an epidural steroid injection for lower back pain. He
says that his symptoms of fatigue, blurry vision and worsening urination progressed after that steroid injection. He denies nausea, vomiting or abdominal pain. In ER he was afebrile to 98 �F, pulse rate 95, breathing at 16 breaths/min, BP
hypertensive to 179/104 and saturating 100% on room air. Initial labs showed mild leukocytosis to 11.4, anemia to 11.4, initial pH 7.34, pCO2 35, serum sodium 132, blood glucose on chemistry 577, HbA1c: 12.1, UA showed +3 ketones with no signs of
UTI and beta-hydroxybutyrate elevated at 5.52. He was given 11 units of regular insulin, 1 L IVF with NS 0.9%, started on IVF with NS 0.9% with 20 mEq of KCl and started on insulin drip. He was admitted to the ICU for further care and squad leader
services consulted for additional management/recommendations.
This morning when I saw the patient he was sitting in chair in no acute distress. He was breathing comfortably saturating 95% with heart rate 87 and BP 163/136. He says he feels much better although he still has some blurry vision. He remains on
insulin drip this morning. His diagnosis of diabetes is new and he had just started metformin about 2 days ago. He currently denies chest pain, WINSTON, abdominal pain, nausea, fevers or chills.
Of note, patient follows with us in the [facility] office with last visit on 09/19/2023 with KALYAN Elizabeth. He has severe FUENTES on nocturnal BiPAP and remains compliant with residual AHI 2.3. He does have SOB and uses albuterol HFA as needed. He
uses albuterol about twice a day. He was told to follow-up with our office in about 1 year. His last BiPAP compliance report for the 30-day period between 08/18 - 09/17/2023 showed an AHI of 2.3 on 23/19 cmH2O with average usage (days used) of 5
hours and 53 minutes. His last PFT from 09/20/2022 showed mild restriction with T%, VC: 78%, and preserved gas exchange capacity with DLco: 77%. Of note, he does not carry a history or have spirometric evidence of COPD.
PMHx: Hyperlipidemia, hypertension, history of diverticulitis s/p colectomy with ileostomy s/p reversal, DM type II, severe FUENTES on BiPAP 23/19 cmH2O, history of chronic hypercapnic respiratory failure/OHS, nocturnal hypoxemia, RV dysfunction, mild
pulmonary hypertension, history of COVID-19, morbid obesity, seasonal allergies
PSHx: Vasectomy, hernia repair, bilateral knee replacement, ileostomy s/p reversal, tonsillectomy
Past Medical History
Past Medical History: Other (Above as per HPI)
Past Surgical History: Other (Above as per HPI)
Social History
Tobacco: Former Smoker (Quit about 40 years ago now with occasional cigar use)
Alcohol: Former (Sober for 3 months)
Drug: None
Employment: Employed
Family History
Family History: Reviewed & Not Pertinent
Allergies / Home Medications
Allergies
Allergy/AdvReac Type Severity Reaction Status Date / Time
ciprofloxacin [From Cipro] Allergy JOINT PAIN Verified 12/04/23 17:18
ciprofloxacin HCl Allergy JOINT PAIN Verified 12/04/23 17:18
[From Cipro]
oxycodone Allergy ORAL Verified 12/04/23 17:18
Swelling
Home Medications
�Medication �Instructions �Recorded �Confirmed �Last Taken �Type
lansoprazole 30 mg capsule,delayed 30 mg PO DAILY Gastrointestinal 06/20/20 12/04/23 09/15/23 History
release (Prevacid) issue
albuterol sulfate 90 mcg/actuation 2 puff inhalation R Q4HPRN PRN SOB 06/23/20 12/04/23 Unknown Rx
aerosol inhaler ##1
metoprolol succinate 25 mg 25 mg PO DAILY Blood pressure #60 06/23/20 12/04/23 09/15/23 Rx
tablet,extended release 24 hr tabs
atorvastatin 80 mg tablet 80 mg PO DAILY High Cholesterol 09/15/23 12/04/23 09/15/23 History
ezetimibe 10 mg tablet 10 mg PO DAILY High Cholesterol 09/15/23 12/04/23 09/15/23 History
gabapentin 300 mg capsule 300 mg PO Q6H Neurological 09/15/23 12/04/23 09/15/23 History
Condition
hydrochlorothiazide 50 mg tablet 50 mg PO DAILY Blood Pressure 09/15/23 12/04/23 09/15/23 History
hydrocodone 10 mg-acetaminophen 1 tab PO Q6H Pain 09/15/23 12/04/23 09/15/23 History
325 mg tablet
valsartan 160 mg tablet 160 mg PO DAILY Blood Pressure 09/15/23 12/04/23 09/15/23 History
metformin 500 mg tablet,extended 1,000 mg PO DAILY Diabetes 12/04/23 12/04/23 Unknown History
release 24 hr
pioglitazone 15 mg tablet 15 mg PO DAILY Diabetes 12/04/23 12/04/23 Unknown History
therapeutic multivitamin 1 tab PO DAILY Supplement 12/04/23 12/04/23 Unknown History
Review of Systems
-
History Source: Patient
All other systems: Negative unless noted
Vitals / Labs / Diagnostic Testing
Vital Signs
Temp Pulse Resp BP Pulse Ox
97.9 F 70 16 161/98 91
12/05/23 08:16 12/05/23 08:26 12/05/23 06:15 12/05/23 08:26 12/05/23 06:15
Lab Data
12/05/23 04:29
Laboratory Results
12/05/23
04:29
PT 12.9
INR 0.97
APTT 24.7
Diagnostic Testing:
Physical Exam
-
HEENT: Normocephalic, Anicteric and Other (thick neck)
Cardiovascular: S1/S2 and Peripheral Edema (trace LE edema b/l)
Respiratory: Wheeze (negative), Rales (Bibasilar), Rhonchi (negative) and Non-Labored Respirations
GI: Soft, Distended (Abdominal obesity), Non Tender and Normal Bowel Sounds
Neurology: AO x 3 and Tremors (negative)
Skin: Warm and Dry
General: Respiratory Distress (negative), Comfortable, Fever (negative) and Chills (negative)
Assessment
-
Assessment: 63-year-old male former tobacco smoker with a past medical history of DM type II, severe FUENTES on nocturnal BiPAP 23/19 cmH2O, history of OHS, RV dysfunction, mild pulmonary hypertension, history of COVID-19, seasonal allergies,
hyperlipidemia, hypertension and history of diverticulitis s/p colectomy with ileostomy s/p reversal who presents with elevated glucose, fatigue, blurry vision and increased urination. About 1 week ago he had an epidural steroid injection for lower
back pain. He says that his symptoms of fatigue, blurry vision and worsening urination progressed after that steroid injection. He denies nausea, vomiting or abdominal pain. In ER he was afebrile to 98 �F, pulse rate 95, breathing at 16
breaths/min, BP hypertensive to 179/104 and saturating 100% on room air. Initial labs showed mild leukocytosis to 11.4, anemia to 11.4, initial pH 7.34, pCO2 35, serum sodium 132, blood glucose on chemistry 577, HbA1c: 12.1, UA showed +3 ketones
with no signs of UTI and beta-hydroxybutyrate elevated at 5.52. He was given 11 units of regular insulin, 1 L IVF with NS 0.9%, started on IVF with NS 0.9% with 20 mEq of KCl and started on insulin drip. He was admitted to the ICU for further care
and squad leader services consulted for additional management/recommendations.
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
dysfunction, mild pulmonary hypertension, history of COVID-19, morbid obesity, seasonal allergies
Impression:
#DM type II (A1C: 12.1 from ) complicated by severe hyperglycemia with impending DKA
#Pseudohyponatremia � resolved
#Metabolic acidosis with increased anion gap due to impending DKA - now resolved
#Chronic anemia (baseline Hb: 10�11.5g/dL)
#FUENTES on BiPAP at home (23/38puL4I)
#Obesity hypoventilation syndrome on nocturnal BiPAP
#Hypertension
#Hyperlipidemia
#History of RV enlargement with RV hypokinesis (via TTE from May 2022)
#Morbid obesity (BMI: 40.1)
#Former tobacco use (quit ~40 years ago now with occasional cigar use)
Plan:
- Continue with insulin drip with q1-2hr POCT fingersticks and q4hr BMP, Mg and PO4
- Avoid hypoglycemia
- IVF with NS 0.9% with KCl while on insulin gtt, then change to D5-1/2 NS with 20mEq KCl once BG<250
- Once BG <200 x4 hrs with AG closed and serum HCO3>18 then will bridge off insulin gtt with lantus and start basal-bolus dosing with goal BG 140-180mg/dL at that time
- Patient did have recent steroid injection (~1 week ago) into back in this could have potentially precipitated his hyperglycemia
- Diabetic FABRICATION DEPARTMENT SUPERVISOR consulted - recs appreciated
- Of note, he has received approximately 55 units of IV insulin since admission, hence his basal�bolus dosing may need to be increased depending on how his sugars do for the remainder of today
- Maintain euglycemia with goal BG 140-180
- Maintain SpO2 >90-94%
- Start nocturnal BiPAP 23/24rxL0I, which are his home settings
- Maintain MAP>65
- Replete electrolytes with K>4, Mg>2
- Transfuse if needed to keep Hb>7, plt>20k
- prn nebulized bronchodilators - not currently bronchospastic
- Incentive spirometer encouraged 10x per hour for at least 4 hrs a day
- DVT ppx: LMWH
Of note, he follows with us in the [facility] office with last visit on 09/19/2023 with KALYAN Elizabeth mainly for history of severe FUENTES on nocturnal BiPAP. He was advised to follow-up in 1 year in September 2024 and he should keep that appointment.
Patient being weaned off of insulin drip and then starting on basal�bolus insulin dosing. Patient stable for transfer out of ICU to [facility]. [facility]Pulmonary service will now sign off. Thank you for allowing us to be involved in the care of
this patient. Please reconsult if there are any additional questions/concerns, or if patient's respiratory status deteriorates.
Data:
CXR 12/05/2023: Hypoaerated lungs without consolidation.
Total time spent today was 75 minutes for this encounter. Time includes reviewing laboratory test/imaging results, reviewing pertinent medical records, obtaining and reviewing medical history, performing an appropriate exam, ordering medications,
tests and procedures. Time also includes documentation of this encounter, coordinating patient care and communicating with other healthcare professionals. Total time does not include separately billed tests performed on this date of service.
[2023-12-05 08:28] LABS: Glucose - Point of Care 229 mg/dl (70-99)
[2023-12-05 09:06] LABS: Glycohemoglobin (HgbA1c) 12.1 % (4.0-5.6)
[2023-12-05 09:09] LABS: Glucose - Point of Care 246 mg/dl (70-99)
[2023-12-05 10:13] LABS: Glucose - Point of Care 236 mg/dl (70-99)
[2023-12-05 10:35] LABS: Blood Urea Nitrogen 14 mg/dl (9-20); Calcium 9.5 mg/dl (8.4-10.2); Carbon Dioxide 27 mmol/L (22-30); Chloride 98 mmol/L (98-107); Estimated Creatinine Clearance > 125 ml/min; Glucose 245 mg/dl (70-99); Potassium 3.6 mmol/L (3.5-5.1); Sodium 137 mmol/L (135-145); eGFR > 60.00
[2023-12-05 11:08] LABS: Glucose - Point of Care 279 mg/dl (70-99)
--- NOTE | 2023-12-05 11:21 | CM ---
CM met with patient in room. Patient confirmed demographics. Patient lives independently with . Patient has had a history of VN but is currently not on service. Patient denies SNF stay. Patient has a CPAP but does not know where it's from.
Patient is active with his PCP. Patient uses [facility].
No needs noted at this time.
Patient is anxious for discharge. He stated he has to return to work on Friday for a large event.
PLAN: Home no needs.
--- NOTE | 2023-12-05 11:28 | PN.DE.MGMTRT ---
Insulin Management
- -
12/05/2023 Diabetes Management Consult
Patient admitted 12/03 with glucose 577, c/o polyuria, polydipsia. PMH HTN, HLD, COPD, obesity, post op colectomy, back pain. On admission A1C 12.1, cr .5, eGFR >60. Saw primary doctor 2 weeks ago for same symptoms and was started on actos and
metformin.
GAP on admission 22, now 12, per Dr. Alejandra to transition to lantus 15 units now with 5 units ac novolog with moderate corrective insulin. Will resume outpatient metformin 1000 mg BID first dose with dinner.
Patient is awake alert and oriented. Provided Contour next glucose monitor and instructed with good return demonstration. Instructed patient on use of prefilled insulin pens, patient verbalizes understanding of steps to prepare and inject. Nurse
will have patient self inject with each meal with nursing supervision.
Information provided to patient regarding outpatient diabetes classes, he is very receptive.
Diabetes History
- -
Type of Diabetes: 2
Pre-Admission Diabetes Regimen
12/04/23 12/04/23 12/04/23
17:47 18:45 20:45
Creatinine 0.9 Cancelled Cancelled
12/04/23 12/04/23 12/05/23
22:10 22:45 02:00
Creatinine 0.6 L Cancelled Cancelled
12/05/23 12/05/23
04:29 10:08
Creatinine 0.5 L 0.5 L
Lab Results
Hemoglobin A1c 12.1 % (4.0-5.6) H 12/04/23 17:47
Insulin Pump Settings
IP Diabetes Regimen
12/04/23 12/04/23 12/04/23
17:47 18:45 19:12
Glucose 577 H* Cancelled
POC Glucose 456 H*
12/04/23 12/04/23 12/04/23
20:33 20:45 21:00
Glucose Cancelled
POC Glucose 239 H 227 H
12/04/23 12/04/23 12/04/23
22:04 22:10 22:45
Glucose 214 H Cancelled
POC Glucose 215 H
12/04/23 12/05/23 12/05/23
23:00 00:05 00:52
Glucose
POC Glucose 208 H 256 H 256 H
12/05/23 12/05/23 12/05/23
01:58 02:00 03:04
Glucose Cancelled
POC Glucose 335 H 254 H
12/05/23 12/05/23 12/05/23
04:03 04:29 05:01
Glucose 236 H
POC Glucose 306 H 265 H
12/05/23 12/05/23 12/05/23
05:52 07:01 08:16
Glucose
POC Glucose 270 H 279 H 229 H
12/05/23 12/05/23 12/05/23
08:57 10:02 10:08
Glucose 245 H
POC Glucose 246 H 236 H
12/05/23
10:58
Glucose
POC Glucose 279 H
Meal type: Breakfast
Meal type: Dinner
Patient Education
[2023-12-05] MEDS: D5/0.45%NSS with KCL 20 MEQ IV (11:52)
[2023-12-05] MEDS: LANTUS 0.2 UNITS SC (12:20)
[2023-12-05 12:36] LABS: Glucose - Point of Care 218 mg/dl (70-99)
[2023-12-05 13:21] LABS: Glucose - Point of Care 224 mg/dl (70-99)
[2023-12-05] MEDS: NOVOLOG FLEXPEN-MODERATE RESISTANCE 3 UNITS SC (14:15)
[2023-12-05] MEDS: NOVOLOG FLEXPEN 5 UNITS SC ×2 (14:16→18:36)
[2023-12-05 14:24] LABS: Glucose - Point of Care 212 mg/dl (70-99)
--- NOTE | 2023-12-05 15:34 | W.PN.HOSP.TC ---
Today's Communication/Plan
-
Anion gap normalized.
Transition to subcutaneous insulin with initiation of diet.
Assessment / Plan
Assessment / Plan
Impression:
Presentation with mild DKA
Recently diagnosed diabetes.
Hypoglycemia sodium 132 upon presentation.
Obesity with BMI of 40.
Essential hypertension
Dyslipidemia.
GERD.
Chronic COPD.
Chronic back pain requiring opiates.
History of alcohol use disorder
Plan:
DKA
Recently diagnosed diabetes when patient initiated on oral hypoglycemics including pioglitazone, metformin.
Suspect DKA triggered by recent corticosteroid injection as well as high insulin resistance.
Hemoglobin A1c 12.1
Initiated on insulin drip on admission.
Anion gap normalized.
Been transitioned off IV insulin drip to subcutaneous regimen with Lantus/aspart. Continue basal bolus protocol at moderate dose with serial Accu-Cheks.
Advance to carbohydrate controlled diet
Adjust insulin dose over the next 24 hours
Diabetic education.
Patient has been motivated
Mild hypoglycemia/sodium 132 upon presentation likely factious use in the settings of hyperglycemia improved with IV fluids
Essential hypertension
Continue metoprolol losartan. Hold HCTZ
Dyslipidemia
Continue Zetia and atorvastatin
COPD with no acute exacerbation.
Continue albuterol
Alcohol use disorder
Patient reports being sober for the past 3 months.
Chronic pain requiring opiates.
Continue hydrocodone/acetaminophen
Anticipated Discharge: 24 - 48 hours
Subjective/Interval History
-
Date of Service: December 05, 2023
Objective Data
-
Labs:
Laboratory Results
12/05/23 12/05/23 12/05/23
02:00 04:29 10:08
WBC 8.3
Hgb 11.1 L
Hct 32.5 L
Plt Count 266 D
PT 12.9
INR 0.97
APTT 24.7
Sodium Cancelled 135 137
Potassium Cancelled 3.6 3.6
Chloride Cancelled 98 98
Carbon Dioxide Cancelled 24 27
BUN Cancelled 17 14
Creatinine Cancelled 0.5 L 0.5 L
Glucose Cancelled 236 H 245 H
Calcium Cancelled 9.6 9.5
Vital Signs:
Vital Signs
Temp Pulse Resp BP Pulse Ox
98.4 F 85 21 158/101 95
12/05/23 11:13 12/05/23 13:30 12/05/23 13:30 12/05/23 13:00 12/05/23 10:46
I&O
12/04/23 12/05/23 12/06/23
06:59 06:59 06:59
Intake Total 1385 / 1539 775 / 775
Output Total 900 / 900 500 / 500
Balance 485 / 639 275 / 275
Physical Exam
-
General: Well Developed, Well Nourished, No Apparent Distress, Comfortable, Conversant and Morbidly Obese; Negative Respiratory Distress
HEENT: Normocephalic, Atraumatic, Nose Appears Normal and Ears Appear Normal; Negative Oxygen
Respiratory: Clear to Auscultation and Non Labored Respirations; Negative Accessory Resp Muscle Use
Cardiac: Regular Rhythm and S1/S2
GI: Soft, Nontender, Nondistended and Normal Bowel Sounds
Skin: Warm and Dry
Neuro: Awake, Alert, Oriented and AO x 3
Psych: Calm and Intact Judgement/Insight
--- NOTE | 2023-12-05 16:51 | PTCARENOTE ---
pt transferred to room 338-2 report given to receiving RN
[2023-12-05] MEDS: GLUCOPHAGE 1000 MG PO (17:20)
[2023-12-05] MEDS: LOVENOX 40 MG SC (17:20)
[2023-12-05 17:45] LABS: Glucose - Point of Care 497 mg/dl (70-99)
[2023-12-05 18:35] LABS: Glucose 426 mg/dl (70-99)
[2023-12-05] MEDS: NOVOLOG FLEXPEN-MODERATE RESISTANCE 11 UNITS SC (18:36)
[2023-12-05 20:29] LABS: Glucose - Point of Care 435 mg/dl (70-99)
[2023-12-05 21:40] LABS: Glucose 454 mg/dl (70-99)
[2023-12-05] MEDS: NOVOLOG FLEXPEN 11 UNITS SC (22:10)
[2023-12-06] MEDS: NORCO 7.5/325 1 TABLET PO ×5 (00:05→23:17)
[2023-12-06 00:36] LABS: Glucose - Point of Care 383 mg/dl (70-99)
[2023-12-06] MEDS: NOVOLOG FLEXPEN 9 UNITS SC ×2 (01:10→03:24)
[2023-12-06 02:34] LABS: Glucose - Point of Care 415 mg/dl (70-99)
[2023-12-06 02:38] LABS: Glucose - Point of Care 379 mg/dl (70-99)
[2023-12-06] MEDS: NEURONTIN 300 MG PO ×4 (03:26→20:59)
[2023-12-06 04:05] VITALS: PULSE 2; PULSE 81
[2023-12-06 05:29] LABS: Glucose - Point of Care 373 mg/dl (70-99)
[2023-12-06] MEDS: NOVOLOG FLEXPEN 10 UNITS SC (05:53)
--- NOTE | 2023-12-06 06:41 | W.PN.UPDATE ---
Update Note
Progress Note Update
BS has been elevated above 350 all night, covered with insulin Aspart. May need insulin adjustment. No new symptoms. awaiting lab results.
[2023-12-06 07:00] VITALS: BP 144/77
[2023-12-06 07:42] LABS: Glucose - Point of Care 304 mg/dl (70-99)
[2023-12-06] MEDS: DIOVAN 160 MG PO (08:00)
[2023-12-06] MEDS: TOPROL XL 25 MG PO (08:00)
[2023-12-06] MEDS: PROTONIX 40 MG PO (08:00)
[2023-12-06] MEDS: LIPITOR 80 MG PO (08:00)
[2023-12-06] MEDS: GLUCOPHAGE 1000 MG PO ×2 (08:00→17:36)
[2023-12-06] MEDS: ZETIA 10 MG PO (08:00)
[2023-12-06 08:05] LABS: Glucose - Point of Care 265 mg/dl (70-99)
[2023-12-06] MEDS: LANTUS 0.15 UNITS SC (08:06)
[2023-12-06] MEDS: NOVOLOG FLEXPEN 5 UNITS SC (08:28)
[2023-12-06] MEDS: NOVOLOG FLEXPEN-MODERATE RESISTANCE 5 UNITS SC (08:28)
[2023-12-06 08:52] LABS: % Basophils 0.4 % (0-2); % Eosinophils 1.2 % (0-6); % Immature Granulocytes 0.5 % (0-0.5); % Lymphocytes 26.1 % (20.5-51.1); % Monocytes 8.9 % (1.7-9.3); % Neutrophils 62.9 % (42.2-75.2); Absolute Eosinophils 0.1 10^3/uL (0-0.7); Absolute Lymphocytes 1.9 10^3/uL (1.2-3.4); Absolute Monocytes 0.7 10^3/uL (0.1-0.6); Absolute Neutrophils 4.7 10^3/uL (1.4-6.5); Hematocrit 34.9 % (39.0-52.0); Hemoglobin 11.2 g/dL (13.0-18.0); Mean Corp Hgb Conc. 32.1 g/dL (33.0-37.0); Mean Corpuscular Hgb 28.4 pg (27.0-31.0); Mean Corpuscular Volume 88.6 fL (80.0-94.0); Nucleated Red Blood Cells % 0 % (-); Platelet Count 235 10^3/uL (130-400); Red Blood Cell Count 3.94 10^6/uL (4.70-6.10); Red Cell Dist. Width 15.1 % (11.5-14.5); White Blood Cell Count 7.4 10^3/uL (4.8-10.8)
[2023-12-06 09:50] VITALS: BMI 40.4
[2023-12-06 10:08] LABS: Blood Urea Nitrogen 17 mg/dl (9-20); Calcium 9.2 mg/dl (8.4-10.2); Carbon Dioxide 26 mmol/L (22-30); Chloride 96 mmol/L (98-107); Estimated Creatinine Clearance > 125 ml/min; Glucose 305 mg/dl (70-99); Potassium 3.3 mmol/L (3.5-5.1); Sodium 135 mmol/L (135-145); eGFR > 60.00
[2023-12-06 12:18] LABS: Glucose - Point of Care 230 mg/dl (70-99)
[2023-12-06] MEDS: NOVOLOG FLEXPEN-MODERATE RESISTANCE 3 UNITS SC (13:01)
[2023-12-06] MEDS: NOVOLOG FLEXPEN SC (13:04)
[2023-12-06] MEDS: NOVOLOG FLEXPEN 7 UNITS SC ×2 (13:07→18:13)
--- NOTE | 2023-12-06 14:31 | W.PN.HOSP.TC ---
Today's Communication/Plan
-
increase insulin dose
monitor BG
possible d/c in 24 hrs
Assessment / Plan
Assessment / Plan
Impression:
Presentation with mild DKA
Recently diagnosed diabetes.
Hypoglycemia sodium 132 upon presentation.
Obesity with BMI of 40.
Essential hypertension
Dyslipidemia.
GERD.
Chronic COPD.
Chronic back pain requiring opiates.
History of alcohol use disorder
Plan:
DKA
Recently diagnosed diabetes when patient initiated on oral hypoglycemics including pioglitazone, metformin.
Suspect DKA triggered by recent corticosteroid injection as well as high insulin resistance.
Hemoglobin A1c 12.1
Initiated on insulin drip on admission.
Anion gap normalized.
Been transitioned off IV insulin drip to subcutaneous regimen with Lantus/aspart. Continue basal bolus protocol at moderate dose with serial Accu-Cheks.
Advance to carbohydrate controlled diet
Increase novolog to 7 U AC and lantus to 25U daily. monitor BG and if consistently < 200, could be discharged home on the regimen
Mild hypoglycemia/sodium 132 upon presentation likely factious use in the settings of hyperglycemia improved with IV fluids
Essential hypertension
Continue metoprolol losartan. Hold HCTZ
Dyslipidemia
Continue Zetia and atorvastatin
COPD with no acute exacerbation.
Continue albuterol
Alcohol use disorder
Patient reports being sober for the past 3 months.
Chronic pain requiring opiates.
Continue hydrocodone/acetaminophen
Anticipated Discharge: Within 24 hours
Subjective/Interval History
-
Date of Service: December 06, 2023
no new complains overnight
Objective Data
-
Labs:
Laboratory Results
12/06/23
06:25
WBC 7.4
Hgb 11.2 L
Hct 34.9 L
Plt Count 235
Sodium 135
Potassium 3.3 L
Chloride 96 L
Carbon Dioxide 26
BUN 17
Creatinine 0.6 L
Glucose 305 H
Calcium 9.2
Vital Signs:
Vital Signs
Temp Pulse Resp BP Pulse Ox
98.1 F 80 16 144/77 96
12/06/23 07:00 12/06/23 07:00 12/06/23 07:00 12/06/23 07:00 12/06/23 07:00
I&O
12/05/23 12/06/23 12/07/23
06:59 06:59 06:59
Intake Total 1385 / 1539 1025 / 1025
Output Total 900 / 900 500 / 500
Balance 485 / 639 525 / 525
Review of Systems
-
Respiratory: Reports No Symptoms
Cardiac: Reports No Symptoms
Abdomen/GI: Reports No Symptoms
Physical Exam
-
General: No Apparent Distress and Comfortable
HEENT: Negative Oxygen
Respiratory: Clear to Auscultation
Cardiac: Regular Rhythm and S1/S2; Negative Murmur or Rub
GI: Soft, Nontender, Nondistended and Normal Bowel Sounds
Musculoskeletal: No Edema
Neuro: Awake, Alert, Oriented, No Motor Deficits and Nonfocal/Grossly Intact
Psych: Calm
[2023-12-06 15:00] VITALS: BP 112/60
[2023-12-06 16:54] LABS: Glucose - Point of Care 312 mg/dl (70-99)
[2023-12-06] MEDS: LOVENOX 40 MG SC (17:36)
[2023-12-06] MEDS: NOVOLOG FLEXPEN-MODERATE RESISTANCE 7 UNITS SC (18:14)
[2023-12-06 21:20] LABS: Glucose - Point of Care 278 mg/dl (70-99)
--- NOTE | 2023-12-06 22:00 | PTCARENOTE ---
Blood glucose elevated, [id number]. FICTION AND NONFICTION PROSE WRITER made aware, no new orders provided.
[2023-12-06 22:15] VITALS: PULSE 2; PULSE 80
[2023-12-06 23:17] VITALS: BP 146/89
[2023-12-07 02:43] LABS: Glucose - Point of Care 314 mg/dl (70-99)
--- NOTE | 2023-12-07 02:58 | PTCARENOTE ---
Pt glucose elevated, result= 314. 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 Will recheck glucose in 2 hours.
[2023-12-07] MEDS: NOVOLOG FLEXPEN 5 UNITS SC (03:02)
[2023-12-07] MEDS: NEURONTIN 300 MG PO ×4 (03:02→21:10)
[2023-12-07 05:27] LABS: Glucose - Point of Care 313 mg/dl (70-99)
--- NOTE | 2023-12-07 05:39 | PTCARENOTE ---
Glucose continues to be elevated, [id number]=[id number]. REFLESHER made aware, new order provided, see MAR. Will continue to monitor.
[2023-12-07] MEDS: NOVOLOG FLEXPEN 7 UNITS SC (05:55)
[2023-12-07] MEDS: NORCO 7.5/325 1 TABLET PO ×3 (05:55→17:27)
[2023-12-07 06:00] VITALS: BMI 40.3
[2023-12-07 07:00] VITALS: BP 151/86
[2023-12-07 07:44] LABS: Glucose - Point of Care 239 mg/dl (70-99)
[2023-12-07] MEDS: NOVOLOG FLEXPEN SC ×2 (09:17→14:21)
[2023-12-07] MEDS: LIPITOR 80 MG PO (09:22)
[2023-12-07] MEDS: TOPROL XL 25 MG PO (09:22)
[2023-12-07] MEDS: GLUCOPHAGE 1000 MG PO ×2 (09:22→17:27)
[2023-12-07] MEDS: PROTONIX 40 MG PO (09:22)
[2023-12-07] MEDS: ZETIA 10 MG PO (09:22)
[2023-12-07] MEDS: LANTUS 0.25 UNITS SC (09:23)
[2023-12-07] MEDS: NOVOLOG FLEXPEN 10 UNITS SC (09:23)
[2023-12-07] MEDS: DIOVAN 160 MG PO (09:23)
[2023-12-07] MEDS: NOVOLOG FLEXPEN-MODERATE RESISTANCE 3 UNITS SC ×2 (09:24→14:13)
[2023-12-07 12:27] LABS: Glucose - Point of Care 226 mg/dl (70-99)
--- NOTE | 2023-12-07 13:11 | W.PN.HOSP.TC ---
Today's Communication/Plan
-
adjust insulin dose
d/c in 24 hrs
Assessment / Plan
Assessment / Plan
Impression:
Presentation with mild DKA
Recently diagnosed diabetes.
Hypoglycemia sodium 132 upon presentation.
Obesity with BMI of 40.
Essential hypertension
Dyslipidemia.
GERD.
Chronic COPD.
Chronic back pain requiring opiates.
History of alcohol use disorder
Plan:
DKA
Recently diagnosed diabetes when patient initiated on oral hypoglycemics including pioglitazone, metformin.
Suspect DKA triggered by recent corticosteroid injection as well as high insulin resistance.
Hemoglobin A1c 12.1
Initiated on insulin drip on admission.
Anion gap normalized.
Been transitioned off IV insulin drip to subcutaneous regimen with Lantus/aspart. Continue basal bolus protocol at moderate dose with serial Accu-Cheks.
Advance to carbohydrate controlled diet
Increase novolog to 10 U AC in morning > BG high for pre-lunch and increased to 12 U AC, keep lantus 25U daily
Mild hypoglycemia/sodium 132 upon presentation likely factious use in the settings of hyperglycemia improved with IV fluids
Essential hypertension
Continue metoprolol losartan. Hold HCTZ
Dyslipidemia
Continue Zetia and atorvastatin
COPD with no acute exacerbation.
Continue albuterol
Alcohol use disorder
Patient reports being sober for the past 3 months.
Chronic pain requiring opiates.
Continue hydrocodone/acetaminophen
Anticipated Discharge: 24 - 48 hours
Subjective/Interval History
-
Date of Service: December 07, 2023
no new issues overnight
Objective Data
-
Vital Signs:
Vital Signs
Temp Pulse Resp BP Pulse Ox
98.2 F 77 16 151/86 95
12/07/23 07:00 12/07/23 09:23 12/07/23 07:00 12/07/23 09:23 12/07/23 07:00
I&O
12/06/23 12/07/23 12/08/23
06:59 06:59 06:59
Intake Total 1025 / 1025 1140 / 1140
Output Total 500 / 500
Balance 525 / 525 1140 / 1140
Review of Systems
-
Respiratory: Reports No Symptoms
Cardiac: Reports No Symptoms
Abdomen/GI: Reports No Symptoms
Physical Exam
-
General: No Apparent Distress and Comfortable
HEENT: Negative Oxygen
Respiratory: Clear to Auscultation
Cardiac: Regular Rhythm and S1/S2; Negative Murmur or Rub
GI: Soft, Nontender, Nondistended and Normal Bowel Sounds
Musculoskeletal: No Edema
Neuro: Awake, Alert, Oriented, No Motor Deficits and Nonfocal/Grossly Intact
Psych: Calm
[2023-12-07] MEDS: NOVOLOG FLEXPEN 12 UNITS SC ×2 (14:14→17:28)
[2023-12-07 15:00] VITALS: BP 108/64
[2023-12-07 17:12] LABS: Glucose - Point of Care 315 mg/dl (70-99)
[2023-12-07] MEDS: LOVENOX 40 MG SC (17:28)
[2023-12-07] MEDS: NOVOLOG FLEXPEN-MODERATE RESISTANCE 7 UNITS SC (17:29)
[2023-12-07 21:32] LABS: Glucose - Point of Care 282 mg/dl (70-99)
[2023-12-07 21:42] VITALS: PULSE 2; PULSE 89
[2023-12-07 23:00] VITALS: BP 109/70
[2023-12-08] MEDS: NORCO 7.5/325 1 TABLET PO ×3 (00:03→13:05)
[2023-12-08 02:48] VITALS: PULSE 2
[2023-12-08] MEDS: NEURONTIN 300 MG PO ×2 (03:33→08:55)
[2023-12-08 06:00] VITALS: BMI 40.3
[2023-12-08 07:25] VITALS: BP 160/77
[2023-12-08 08:25] LABS: Glucose - Point of Care 305 mg/dl (70-99)
[2023-12-08] MEDS: NOVOLOG FLEXPEN-MODERATE RESISTANCE 7 UNITS SC (08:52)
[2023-12-08] MEDS: NOVOLOG FLEXPEN 12 UNITS SC (08:52)
[2023-12-08] MEDS: TOPROL XL 25 MG PO (08:53)
[2023-12-08] MEDS: ZETIA 10 MG PO (08:53)
[2023-12-08] MEDS: DIOVAN 160 MG PO (08:53)
[2023-12-08] MEDS: LIPITOR 80 MG PO (08:53)
[2023-12-08] MEDS: PROTONIX 40 MG PO (08:53)
[2023-12-08] MEDS: GLUCOPHAGE 1000 MG PO (08:54)
[2023-12-08] MEDS: LANTUS 0.25 UNITS SC (08:54)
--- NOTE | 2023-12-08 09:24 | PN.DE.MGMTRT ---
Insulin Management
- -
12/08/2023 Diabetes Management F/U:
Patient admitted 12/03 with glucose 577, c/o polyuria, polydipsia. PMH HTN, HLD, COPD, obesity, post op colectomy, back pain. On admission A1C 12.1, cr .5, eGFR >60. Saw primary doctor 2 weeks ago for same symptoms and was started on Actos and
metformin.
GAP on admission 22, now 12, per Dr. Alejandra to transition to Lantus 15 units now with 5 units ac NovoLog with moderate corrective insulin. Will resume outpatient metformin 1000 mg BID first dose with dinner.
Patient awake A/O x3, sitting up in bed, able to discuss diabetes mgt.
Noted for persistent Hyperglycemia since transition off insulin drip.
Premeal glucose 226 to 315, requiring 3-7 units of additional corrective insulin
FBG 305 this AM, glucose up to 282 @ HS last night.
Will increase Lantus to 30 units and AC NovoLog to 15 units. Cont Metformin and moderate corrective with meals
Will follow and make further insulin adjustments if needed
12/04 Provided Contour next glucose monitor and instructed with good return demonstration. Instructed patient on use of prefilled insulin pens, patient verbalizes understanding of steps to prepare and inject. Nurse will have patient self inject
with each meal with nursing supervision.
Information provided to patient regarding outpatient diabetes classes, he is very receptive.
Diabetes History
- -
Type of Diabetes: 2 requiring insulin
Pre-Admission Diabetes Regimen
Lab Results
Hemoglobin A1c 12.1 % (4.0-5.6) H 12/04/23 17:47
Insulin Pump Settings
IP Diabetes Regimen
12/07/23 12/07/23 12/07/23
12:25 17:12 21:29
POC Glucose 226 H 315 H 282 H
12/08/23
08:24
POC Glucose 305 H
Meal type: Lunch
Meal type: Breakfast
Amount consumed: 100%
Amount consumed: 100%
Patient Education
--- NOTE | 2023-12-08 10:26 | CM ---
Pt seen at beside. Pt confirmed his will transport home at d/c.
Pt did share he needs a note for work. CM TT Dr. Alejandra re note.
Plan: D/c home with no needs
[2023-12-08 11:39] LABS: Glucose - Point of Care 248 mg/dl (70-99)
[2023-12-08] MEDS: NOVOLOG FLEXPEN-MODERATE RESISTANCE 3 UNITS SC (13:02)
[2023-12-08] MEDS: NOVOLOG FLEXPEN 15 UNITS SC (13:02)
--- NOTE | 2023-12-08 13:59 | W.DS.TRANS ---
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
-
Discharge Instructions:
Discharge Diagnosis/Procedures DKA.
Diet Diabetic, Carb Controlled
Instructions:
Stand-Alone Forms: Return to Work
Changes to Home Medications: Yes
Discharge Medications:
DC Medications w/original date entered in [facility]
lansoprazole 30 mg capsule,delayed release (Prevacid) 30 mg PO DAILY Gastrointestinal issue 06/20/20
albuterol sulfate 90 mcg/actuation aerosol inhaler 2 puff inhalation R Q4HPRN PRN SOB ##1 06/23/20
metoprolol succinate 25 mg tablet,extended release 24 hr 25 mg PO DAILY Blood pressure #60 tabs 06/23/20
atorvastatin 80 mg tablet 80 mg PO DAILY High Cholesterol 09/15/23
ezetimibe 10 mg tablet 10 mg PO DAILY High Cholesterol 09/15/23
gabapentin 300 mg capsule 300 mg PO Q6H Neurological Condition 09/15/23
hydrocodone 10 mg-acetaminophen 325 mg tablet 1 tab PO Q6H Pain 09/15/23
valsartan 160 mg tablet 160 mg PO DAILY Blood Pressure 09/15/23
therapeutic multivitamin 1 tab PO DAILY Supplement 12/04/23
blood sugar diagnostic (Accu-Chek Guide test strips) #200 ea 12/08/23
blood sugar diagnostic (OneTouch Verio test strips) #200 ea 12/08/23
insulin glargine 100 unit/mL (3 mL) subcutaneous pen (Lantus Solostar U-100 Insulin) 30 unit (0.3 mL) SC DAILY #5 ea 12/08/23
insulin lispro 100 unit/mL subcutaneous pen (Humalog KwikPen (U-100) Insulin) 15 unit (0.15 mL) SC AC #5 ea 12/08/23
lancets (Accu-Chek Softclix Lancets) #200 ea 12/08/23
metformin 1,000 mg tablet 1,000 mg PO BID@0800,1700 #60 tabs 12/08/23
pen needle, diabetic 32 gauge x 5/32' (BD Ultra-Fine Brigette Pen Needle) #200 ea 12/08/23
Home Medication Changes
Insulin initiated.
Metformin increased
Pioglitazone stopped
HCTZ stopped.
Pending Results: No
[2023-12-08] MEDS: AFLURIA (36 mos+) 2024-2025 FORMULA 0.5 ML IM (14:54)
[2023-12-08 14:57] VITALS: BP 135/84
== END 2023-12-08 15:39 | disposition home or self-care (01) | DRG 638 ==
LOC: 3 WEST ACU 19:49
PROVIDERS: Nurse Practitioner Primary Care; Physician Assistant Medical; ADMITTING PHYSICIAN Hospitalist; ATTENDING PHYSICIAN Internal Medicine; CONSULT PHYSICIAN Internal Medicine Critical Care Medicine; EMERGENCY PHYSICIAN Emergency Medicine; FAMILY PHYSICIAN Family Medicine
PROC: 5A09357 Assistance with Respiratory Ventilation, Less than 24 Consecutive Hours, Continuous Positive Airway Pressure (ICD-10-PCS; 2023-12-05)
DX: E11.10 Type 2 diabetes mellitus with ketoacidosis without coma (principal); E66.2 Morbid (severe) obesity with alveolar hypoventilation; Z68.41 Body mass index [BMI] 40.0-44.9, adult; I10 Essential (primary) hypertension; K21.9 Gastro-esophageal reflux disease without esophagitis; G89.29 Other chronic pain; E78.00 Pure hypercholesterolemia, unspecified; J44.9 Chronic obstructive pulmonary disease, unspecified; M54.9 Dorsalgia, unspecified; D64.9 Anemia, unspecified; T38.0X5A Adverse effect of glucocorticoids and synthetic analogues, initial encounter; Z96.653 Presence of artificial knee joint, bilateral; Z90.49 Acquired absence of other specified parts of digestive tract; Z87.891 Personal history of nicotine dependence; Z86.16 Personal history of COVID-19; Z79.899 Other long term (current) drug therapy; Z88.1 Allergy status to other antibiotic agents; Z88.5 Allergy status to narcotic agent; Z79.891 Long term (current) use of opiate analgesic
CPT/HCPCS: 71045; 80048; 80053; 81003; 82010; 82805; 82947; 82962; 83036; 85025; 85027; 85610; 85730; 90686; 94660; 96361; 96374; 99285; 99406; G0008

== ENCOUNTER → 2024-01-21 12:39 | Outpatient (REF) | payer OTHER, SELFPAY ==
--- NOTE | 2024-01-21 14:08 | CARDSERVLU ---
Echocardiogram with Lumason completed after protocol screening completed. Allergies verified.
Patent IV site: Rt AC
IV site flushed with 0.9% NaCl pre and post administration.
Diluted bolus method utilized to enhance visualization of ventricular becerra.
Total volume given: ___3.0_ mL
Patient tolerated all procedures well without complications.
#22 alayna placed Rt AC. Lumason given. INT d/c'd. dsg applied. pressure held. No bleeding noted.
== END ==
LOC: RCS 12:39
PROVIDERS: ATTENDING PHYSICIAN Internal Medicine Cardiovascular Disease; FAMILY PHYSICIAN Family Medicine
DX: R01.1 Cardiac murmur, unspecified (principal); E78.5 Hyperlipidemia, unspecified; E66.01 Morbid (severe) obesity due to excess calories; I50.812 Chronic right heart failure
CPT/HCPCS: 93306; Q9950

== ENCOUNTER → 2024-03-22 10:04 | Outpatient (REF) | payer OTHER, SELFPAY ==
--- NOTE | 2024-03-12 17:43 | PN.DIAED02 ---
Referral
DSME Class Series Code: [id number]
Referred For: Diabetes Self-Management Training, Medical Nutrition Therapy, Long-Term Complication Instruction, Accute Complication Instruction, Continuous Glucose Monitoring, Medication management, Insulin Instruction, Care Coordination, Disease
Management
PHI Release Authorization Form Signed: Yes
Demographic
(1) Type 2 diabetes mellitus with hyperglycemia
Status: Acute
Qualifiers:
Diabetes mellitus group home insulin use: unspecified group home insulin use status Qualified Code(s): E11.65 - Type 2 diabetes mellitus with hyperglycemia
Code(s): E11.65 - Type 2 diabetes mellitus with hyperglycemia
Patient's primary language-: Cymraes
Education: High school/GED
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
- Social
Primary Support Person: Self
Primary Care Takers: Self
Living Arrangements: Self & spouse, Family
- Learning Methods
Preferred Method: Hands-on demonstration
Barriers to Learning: None
Glycemic Control
- Blood Glucose Monitoring Assessment
Blood glucose monitoring at home: Yes (alex 2 CGM)
- Hyperglycemia Assessment
Experiences Hyperglycemia: Yes (increased urination )
- Hypoglycemia Assessment
Patient carries glucose source: No (reviewed rule of 15)
Patient experiences hypoglycemia: No
History of Hypoglycemia Unawareness: No
- Blood Glucose Monitoring Results
Source: Other (alex 2 sensor)
- Hemoglobin A1c
Date: 12/02/23
A1C Percentage (%): 11.6
Medical History of Diabetes
Family Diabetes History: Unknown
Previous Diabetes Education: No
Previous visit with Dietitian: No
Complications/Comorbidity/Specialist: Diabetic Neuropathy, Gastrointestinal disease (diverticulitis: surgery and on lansoprazole 300 mg daily), Heart Disease, Hypertension (Metropolo, 50 mg daily, hydrocholthiazide 50 mg Qd, Valsartan 160 mg daily),
Hyperlipidemia (Ezetimibe 10 mg daily, Icosapent Ethyl 1 gram daily, Pravastatin 40 mg daily, Atorvastatin 80 mg daily), Other / symptoms (Back pain: Hydrocone- acetaminophen 10-325 mg 2 tablets BID & gabbapentin 600 mg BID)
Current Home Medication
- Insulin Management
Patient adjusts own insulin dosages: No
Patient has access to glucagon: No (recc to reach out to PCP for a prescription)
- Insulin Types
Other Lantus
Insulin Injection Site: Rotates
Administration Type: Other (Lymjuev pen & lantus solostar)
Measures
- Anthropometrics
Height: 5 ft 6 in
Actual Weight: 268 lb 12.8 oz
- Blood Pressure / Pulse
Blood pressure: 150/90 (on medication, recc he reach out to PCP if repeated at home and still elevated)
Pulse: 90
- Diabetes Management
Medical Management for Diabetes: Complete physical exam (12/02/23), Dental exam (02/03/24), Dilated eye exam (12/31/23)
Self-Care
- Tobacco Usage
Do you now, or have you ever smoked?: Quit more than 1 year ago
- Alcohol & Drugs Usage
Drinks Alcohol: No
- Meals & Dining
Meals & Dining: Patient skips meals: No, Food Intolerance / Allergy: No, Cultural / Buddhist Dietary Needs: No
Primary Food Fisher Eel Spear: Self & Spouse
Primary Diet Attendant: Self & Spouse
Dining Out Frequency: 1-3x per week
- Physical Activity
Physical Limitation: Yes (knee and back pain)
Patient participates in physical Activity: No
Activity Types: Other (active at work)
- Self Foot-Care
Foot Problems: None
- Patient-Self Assessment
Diabetes Knowledge: Poor
Feelings About Diabetes: Anger
Importance of Health: Extremely
Stress Level: Medium
Diabetes Interferes With:: Other (inconveniant)
Barriers to Diabetes Management: Nothing
Depression Survey Score: 1
- Diabetes Identification
Carries Diabetes Identification: No
Diabetes Identification Information Provided: Yes
Care Plan
- Plan of Care
Plan of Care:
& Mrs. Covarrubias presented for Arturo's initial assessment for the March DSME session. He is currently on Lantus 30 units daily and Lyumjev 6 to 8 units pre-meals. Arturo also take Metformin 1000 mg BID. He was diagnosed in 12/02/23 with an A1c
of 11.6. He has a history of multiple GI surgeries related to diverticulitis. He wears the alex 2 sensor and his overall time in range is 84 % for the past 2 weeks with an average of 137 mg/dL. We discussed his goals of increasing exercise and
following a nutrition plan. We also discussed hypoglycemia recognition and treatment and I encouraged him to obtain medical identification. He is on multiple blood pressure medications and his current B/P was elevated 150/99 (155/95). He stated he
normally runs lower and will re-check his readings at home. He denied any discomfort and will reach out to his PCP if the B/P readings continued to be elevated. I encouraged Arturo to reach out to the office with any concerns prior to attending the
course.
--- NOTE | 2024-03-12 18:04 | PN.DIAED04 ---
Education Record
- Education Record
Class Attended: Other (initial DSME assessment)
DSME Class Series Code: [id number]
Instructor: Nurse Practitioner (KALYAN Burr)
Pre-Program Knowledge: Needs review / Assistance
Pre-Test Score (%): 55
Goals
- Goal 1
Being Active: Exercise more often
Goals To Be Evaluated: Exercise more often
- Goal 2
Healthy Eating: Patient will be able to plan a meal, Make better food choices
Goals To Be Evaluated: Be able to plan a meal. Make better food choices
- Goal 3
Monitoring: Follow monitoring schedule (review glucose sensor to identify glucose patterns in relation to foods/exercise)
Goals To Be Evaluated: Follow monitoring times
--- NOTE | 2024-03-23 15:41 | PN.DIAED14 ---
This is to notify you that your patient with diabetes, SHITAL SZYMANSKI ( 1960), has enrolled in our diabetes self-management classes that are being held at [facility].
These classes will include an introduction to diabetes, diet, medication, exercise and prevention of complications. At the end of our class series, you will receive a report of your patient's participation and progress for your records.
Please contact me at the Diabetes Center, , if there is any particular information regarding your patient that might be helpful to me.
Sincerely,
Mauricio BIGGS-MELANY,[facility]
--- NOTE | 2024-03-23 15:41 | PN.DIAED04 ---
<Johanny Howard - Last Filed: 03/23/24 15:41>
Education Record
- Education Record
Class Attended: Class 1
DSME Class Series Code: [id number]
Instructor: Nurse Practitioner (KALYAN Burr)
Class Length (mins): 120
Post-Class 1 Test Score (%): 100
<Marsha Patel - Last Filed: 03/23/24 16:18>
Education Record
- Education Record
Class Curriculum:
Outpatient Diabetes Education Program:
Class 1 (120 minutes)
Describe the diabetes disease process and treatment options
Diabetes management
Develop personal strategies to promote health and behavior change
Integrate psychosocial adjustment for daily living
Monitor blood glucose and other parameters. Interpret and use the results for self-management decision making
Prevent, detect, and treat acute complications
== END ==
LOC: DES 10:04
PROVIDERS: ATTENDING PHYSICIAN Family Medicine
DX: E11.65 Type 2 diabetes mellitus with hyperglycemia (principal)
CPT/HCPCS: 99078

== ENCOUNTER → 2024-03-29 14:04 | Outpatient (REF) | payer OTHER, SELFPAY | LOC: DES 14:04 | PROVIDERS: ATTENDING PHYSICIAN Family Medicine | DX: E11.65 Type 2 diabetes mellitus with hyperglycemia (principal) | CPT/HCPCS: 99078 ==

== ENCOUNTER → 2024-04-05 11:25 | Outpatient (REF) | payer OTHER, SELFPAY | LOC: DES 11:25 | PROVIDERS: ATTENDING PHYSICIAN Family Medicine | DX: E11.65 Type 2 diabetes mellitus with hyperglycemia (principal) | CPT/HCPCS: 99078 ==

== ENCOUNTER 2024-04-07 15:18 | Outpatient (RCR) | payer OTHER, SELFPAY | END 2024-04-09 13:49 | disposition home or self-care (01) | LOC: RPT 15:18 | PROVIDERS: ATTENDING PHYSICIAN Physician Assistant; FAMILY PHYSICIAN Family Medicine | DX: M43.16 Spondylolisthesis, lumbar region (principal); Z73.6 Limitation of activities due to disability; R26.89 Other abnormalities of gait and mobility; E66.9 Obesity, unspecified; G89.29 Other chronic pain | CPT/HCPCS: 97110; 97163 ==

== ENCOUNTER → 2024-04-12 08:44 | Outpatient (REF) | payer OTHER, SELFPAY ==
--- NOTE | 2024-04-13 10:41 | PN.DIAED04 ---
Education Record
- Education Record
Class Attended: Class 4
DSME Class Series Code: [id number]
Instructor: Nurse Practitioner (KALYAN Burr)
Class Curriculum:
Outpatient Diabetes Education Program:
Class 4 (120 minutes)
Develop personal strategies to promote health and behavior change
Incorporate physical activity into lifestyle
Utilize medications safety for maximum therapeutic effectiveness
Understand different medication/insulin mechanism of action
Preparing for travel
Class Length (mins): 120
Post-Class 4 Test Score (%): 100
== END ==
LOC: DES 08:44
PROVIDERS: ATTENDING PHYSICIAN Family Medicine
DX: E11.65 Type 2 diabetes mellitus with hyperglycemia (principal)
CPT/HCPCS: 99078

== ENCOUNTER → 2024-04-19 13:23 | Outpatient (REF) | payer OTHER, SELFPAY ==
--- NOTE | 2024-04-21 12:16 | PN.DIAED16 ---
This is to notify you that your patient with diabetes, SHITAL SZYMANSKI ( 1960), has attended the entire series of Diabetes Self-Management Education Classes.
Class 1 (120 minutes): Diabetes Overview - monitoring, stress/psychosocial adjustment, support, goal setting
Class 2 (120 minutes): Meal Planning - serving sizes, menu plans
Class 3 (120 minutes): Introduction to Carbohydrate Counting, Analyzing Food Labels
Class 4 (120 minutes): Medication, Exercise and Activity
Class 5 (120 minutes): Sick Day Management, Strategies to Reduce Complications, Problem Solving, Resources
The following behavioral goals were identified:
Exercise more often
Be able to plan a meal
Make better food choices
Follow monitoring times
A follow-up call will be made within three to six months to evaluate attainment of these goals and to check post-program Hemoglobin A1c and overall progress. All class participants are encouraged to contact me if I can be any further assistance in
learning how to manage their diabetes.
Sincerely,
Mauricio BIGGS-, [facility]
== END ==
LOC: DES 13:23
PROVIDERS: ATTENDING PHYSICIAN Family Medicine
DX: E11.65 Type 2 diabetes mellitus with hyperglycemia (principal)
CPT/HCPCS: 99078

== ENCOUNTER → 2024-08-31 09:19 | Outpatient (REF) | payer OTHER, SELFPAY | LOC: PAVMRI 09:19 | PROVIDERS: ATTENDING PHYSICIAN Neurological Surgery | DX: R26.9 Unspecified abnormalities of gait and mobility (principal) | CPT/HCPCS: 72146 ==

== ENCOUNTER → 2024-09-15 16:42 | Outpatient (REF) | payer OTHER, SELFPAY | LOC: RAD 16:42 | PROVIDERS: ATTENDING PHYSICIAN Neurological Surgery; FAMILY PHYSICIAN Family Medicine | DX: R26.9 Unspecified abnormalities of gait and mobility (principal) | CPT/HCPCS: 70450 ==